=== PATIENT | female | born 1960 | race Caucasian/White ===

== ENCOUNTER 2017-04-24 14:46 | Inpatient (IN) | payer OTHER, MEDICARE ==
[~2017-04-24] VITALS: Ht 177.8 cm; Wt 90.7 kg
[~2017-04-24 14:46] MED LIST: BUPR-197 PO; DICL25 PO; DIGO0.12 PO; ESZO2 PO; GEMF600 PO; LINA290C PO; MOME17I; OXYB5TAB33 PO; PANT20 PO; PARO40TA PO; ROBA750T3 PO; SOTA80TA PO; WARF5TAB PO; WARF7.5T4 PO; [UNRECOGNIZED DRUG - CODE] PO
[2017-04-24 15:16] VITALS: BP 177/89; PULSE 101; RESP 18; TEMP 97.8; O2SAT 97
[2017-04-24] MEDS ORDERED: SODIUM CHLOR 0.9% 1000 ML INJ 1,000 ML IV SCH (15:39)
[2017-04-24] MEDS ORDERED: SODIUM CHLORIDE 0.9% FLUSH 5 ML FLUSH IV FLUSH PRN (15:45)
[2017-04-24 15:48] VITALS: TEMP 98.3
--- NOTE | 2017-04-24 16:25 | RADRPT ---
EXAM DATE/TIME: 04/24/2017 16:00 [facility] COMPARISON: CHEST SINGLE AP, November 01, 2013, 18:43. INDICATIONS : Syncopal episode. MEDICAL HISTORY : None. SURGICAL HISTORY : None. ENCOUNTER: Initial ACUITY: 1 day PAIN SCORE: Non-responsive. LOCATION: Bilateral chest FINDINGS: Single view chest demonstrates the heart to be normal in size. The mediastinal contours are prominent suggesting possible mediastinal adenopathy or aneurysmal dilation of the ascending aorta. CT scan of the thorax with contrast is warranted for further assessment. The lungs are clear. The visualized bony structures are grossly intact. CONCLUSION: 1. Mediastinal prominence which is new compared to previous of 11/01/13. CT imaging of the thorax to excluded adenopathy versus aneurysmal dilation of the ascending aorta is warranted. Gonzales Charles MD on April 24, 2017 at 16:22 Board Certified Radiologist. This report was verified electronically.
--- NOTE | 2017-04-24 16:29 | PD ---
HPI Chief Complaint: General Weakness Time Seen by Provider: 15:38 Travel History International Travel<30 days: No Contact w/Intl Traveler<30days: No Traveled to known affect area: No History of Present Illness HPI This is a 56-year-old female with history of atrial fibrillation, chronic pain, anemia, osteoarthritis, who presents today via EMS for altered mental status. The patient apparently reportedly felt weak and someone called 911. When paramedics arrived, they found her lethargic and weak. She was complaining of general malaise. The patient does appear to be lethargic however is able to questions appropriately. She denies any fevers, chills. She denies any nausea vomiting diarrhea. She denies any shortness of breath. She denies any chest pain, chest pressure. Looking through the patient's medication history, she's been on multiple pain medications. This was also confirmed by EMS. PFSH Past Medical History Anemia: Yes Arthritis: Yes Atrial Fibrillation: Yes Blood Disorders: Yes Anxiety: No Depression: Yes Heart Rhythm Problems: Yes (HX A FIB) Cancer: No Cardiac Catheterization: Yes Cardiovascular Problems: Yes (HEART CATH 2002 ) High Cholesterol: Yes Chemotherapy: No Chest Pain: No Congestive Heart Failure: No Cerebrovascular Accident: No Coronary Artery Disease: Yes (A FIB) Diabetes: No Diminished Hearing: No Endocrine: No Gastrointestinal Disorders: Yes GERD: Yes Genitourinary: Yes (BLADDER PROBLEMS) Hiatal Hernia: No Hypertension: Yes Implanted Vascular Access Dvce: No Musculoskeletal: Yes Neurologic: No Psychiatric: Yes Reproductive: No Respiratory: Yes (HX BRONCHITIS) Migraines: No Radiation Therapy: No Seizures: No Ulcer: No Influenza Vaccination: No Menopausal: Yes Tubal Ligation: Yes Past Surgical History Abdominal Surgery: Yes (GALLBLADDER REMOVED) Cholecystectomy: Yes Coronary Artery Bypass Graft: No Genitourinary Surgery: Yes (HYSTERECTOMY) Hysterectomy: Yes Neurologic Surgery: Yes (CARPAL TUNNEL IN R HAND) Oral Surgery: Yes (TONSILECTOMY ) Pacemaker: No Tonsillectomy: Yes Other Surgery: Yes (VEIN STRIPPING RIGHT LEG, arthroscopy left knee) Family History Family Hypercholesterolemia: Yes Social History Alcohol Use: No Tobacco Use: No Substance Use: No Allergies-Medications (Allergen,Severity, Reaction): Coded Allergies: Bee Sting (Verified Allergy, Severe, RESPIRATORY DISTRESS AND SWELLING, ) Erythromycin (Verified Allergy, Severe, Skin ERUPTIONS, 05/17/14) Penicillin (Verified Allergy, Severe, UNKNOWN, 05/17/14) Tetracycline (Verified Allergy, Severe, SKIN ERRUPTIONS, 05/17/14) *MDRO Multi-Drug Resistant Organism (Verified Allergy, Unknown, 05/17/14) MRSA C-diff 12/2013 Reported Meds & Prescriptions Reported Meds & Active Scripts Active Reported Robaxin (Methocarbamol) 750 Mg Tab 750 Mg PO TID Sotalol (Sotalol HCl) 80 Mg Tab 40 Mg PO BID Digoxin 0.125 Mg Tab 125 Mcg PO DAILY Pantoprazole (Pantoprazole Sodium) 40 Mg Tab 40 Mg PO DAILY Relistor (Methylnaltrexone [place]) 150 Mg Tab 450 Mg PO DAILY Gemfibrozil 600 Mg Tab 600 Mg PO BID Take 30 minutes prior to breakfast and dinner. Ditropan (Oxybutynin Chloride) 5 Mg Tab 5 Mg PO Q8HR Paxil (Paroxetine HCl) 40 Mg Tablet 40 Mg PO DAILY Warfarin 5 Mg Tab 5 Mg PO DAILY Bupropion HCl ER 12 HR (Bupropion HCl) 100 Mg Tab 100 Mg PO DAILY Morphine ER (Morphine Sulfate) 100 Mg Tab 125 Mg PO DAILY Lyrica (Pregabalin) 150 Mg Cap 150 Mg PO BID Voltaren (Diclofenac Sodium) 25 Mg Tab 75 Mg PO BID Review of Systems Except as stated in HPI: all other systems reviewed are Neg General / Constitutional: No: Fever, Chills HENT: No: Neck Pain Cardiovascular: No: Chest Pain or Discomfort, Palpitations Respiratory: No: Shortness of Breath Gastrointestinal: No: Nausea, Vomiting Musculoskeletal: Positive: Weakness (and realized), Pain (diffuse joint pain.) Neurologic: Positive: Weakness (generalized), No: Headache, Incontinence, Sensory Disturbance Physical Exam Narrative GENERAL: Well-developed well-nourished female in no acute respiratory distress. Patient does appear sleepy and somewhat lethargic however is able to answer questions. SKIN: Focused skin assessment warm/dry. HEAD: Atraumatic. Normocephalic. EYES: No pinpoint pupils. No scleral icterus. No injection or drainage. ENT: No nasal bleeding or discharge. Mucous membranes are pink and dry. NECK: Trachea midline. Supple. CARDIOVASCULAR: Regular rate and rhythm. No murmur appreciated. RESPIRATORY: No accessory muscle use. Clear to auscultation. Breath sounds equal bilaterally. Decreased respiratory effort. GASTROINTESTINAL: Abdomen soft, non-tender, nondistended. MUSCULOSKELETAL: No obvious deformities. No skin tenting. There is a bruise over the left dorsum of her foot. NEUROLOGICAL: Awake and lethargic. No obvious cranial nerve deficits. Motor grossly within normal limits. Data Data Last Documented VS Vital Signs Date Time Temp Pulse Resp B/P Pulse Ox O2 Delivery O2 Flow Rate FiO2 04/24/17 15:48 98.3 04/24/17 15:16 101 18 177/89 97 Orders Electrocardiogram (04/24/17 ) Basic Metabolic Panel (Bmp) (04/24/17 15:39) Complete Blood Count With Diff (04/24/17 15:39) Comprehensive Metabolic Panel (04/24/17 15:39) Prothrombin Time / Inr (Pt) (04/24/17 15:39) Act Partial Throm Time (Ptt) (04/24/17 15:39) Troponin I (04/24/17 15:39) Thyroid Stimulating Hormone (04/24/17 15:39) Urinalysis - C+S If Indicated (04/24/17 15:39) Chest, Single Ap (04/24/17 15:39) Ct Brain W/O Iv Contrast(Rout) (04/24/17 15:39) Blood Glucose (04/24/17 15:39) Ecg Monitoring (04/24/17 15:39) Iv Access Insert/Monitor (04/24/17 15:39) Oximetry (04/24/17 15:39) Sodium Chloride 0.9% Flush (Ns Flush) (04/24/17 15:45) Sodium Chlor 0.9% 1000 Ml Inj (Ns 1000 M (04/24/17 15:39) Sodium Chlor 0.9% 1000 Ml Inj (Ns 1000 M (04/24/17 17:30) Ct Pulmonary Angiogram (04/24/17 ) Admit To Inpatient (04/24/17 ) Vital Signs (Adult) Q4H (04/24/17 17:40) Activity Oob With Assistance (04/24/17 17:40) Elementary Assistant Teacher / Telemetry .CONTINUOUS (04/24/17 17:40) Diet Regular Basic (04/24/17 Dinner) Sodium Chlor 0.9% 1000 Ml Inj (Ns 1000 M (04/24/17 17:40) Sodium Chloride 0.9% Flush (Ns Flush) (04/24/17 17:45) Sodium Chloride 0.9% Flush (Ns Flush) (04/24/17 21:00) Ondansetron Inj (Zofran Inj) (04/24/17 17:45) Comprehensive Metabolic Panel (04/25/17 06:00) Complete Blood Count With Diff (04/25/17 06:00) Creatine Kinase (Cpk) (04/24/17 17:40) Creatine Kinase (Cpk) (04/24/17 23:40) Troponin I (04/24/17 17:40) Troponin I (04/24/17 23:40) Electrocardiogram (04/24/17 23:45) Pt Request For Service (04/24/17 17:40) Case Management Consult (04/24/17 17:40) Scd Bilateral/Knee High HARI.BID (04/24/17 17:40) Naloxone Inj (Narcan Inj) (04/24/17 17:45) Docusate Sodium-Senna (Gayle-Colace) (04/24/17 21:00) Magnesium Hydroxide Liq (Milk Of Magnesi (04/24/17 17:45) Sennosides (Senokot) (04/24/17 17:45) Bisacodyl Supp (Dulcolax Supp) (04/24/17 17:45) Lactulose Liq (Lactulose Liq) (04/24/17 17:45) Inpatient Certification (04/24/17 ) Total T3 (04/24/17 17:43) Free Thyroxine (T4) (04/24/17 17:43) Drug Screen, Random Urine (04/24/17 17:44) Cortisol (04/24/17 17:44) Magnesium (Mg) (04/24/17 17:45) Protein Electrophoresis Serum (04/24/17 17:55) Pathologist Smear Review (04/24/17 17:55) Iohexol 350 Inj (Omnipaque 350 Inj) (04/24/17 18:08) Digoxin (04/24/17 18:08) Admit Order (Ed Use Only) (04/24/17 18:40) Labs Laboratory Tests Test 04/24/17 04/24/17 16:01 18:33 White Blood Count 22.0 TH/MM3 Red Blood Count 6.78 MIL/MM3 Hemoglobin 16.8 GM/DL Hematocrit 51.4 % Mean Corpuscular Volume 75.8 FL Mean Corpuscular Hemoglobin 24.8 PG Mean Corpuscular Hemoglobin 32.7 % Concent Red Cell Distribution Width 17.1 % Platelet Count 458 TH/MM3 Mean Platelet Volume 9.5 FL Neutrophils (%) (Auto) 85.0 % Lymphocytes (%) (Auto) 9.5 % Monocytes (%) (Auto) 5.3 % Eosinophils (%) (Auto) 0.1 % Basophils (%) (Auto) 0.1 % Neutrophils # (Auto) 18.7 TH/MM3 Lymphocytes # (Auto) 2.1 TH/MM3 Monocytes # (Auto) 1.2 TH/MM3 Eosinophils # (Auto) 0.0 TH/MM3 Basophils # (Auto) 0.0 TH/MM3 CBC Comment DIFF FINAL Differential Comment Blood Smear Pathologist Review Prothrombin Time 22.0 SEC Prothromb Time International 1.9 RATIO Ratio Activated Partial 39.3 SEC Thromboplast Time Sodium Level 138 MEQ/L Potassium Level 3.3 MEQ/L Chloride Level 101 MEQ/L Carbon Dioxide Level 24.7 MEQ/L Anion Gap 12 MEQ/L Blood Urea Nitrogen 41 MG/DL Creatinine 0.93 MG/DL Estimat Glomerular Filtration 62 ML/MIN Rate Random Glucose 123 MG/DL Calcium Level 11.8 MG/DL Protein Corrected Calcium 10.0 MG/DL Magnesium Level 2.5 MG/DL Total Bilirubin 0.9 MG/DL Aspartate Amino Transf 19 U/L (AST/SGOT) Alanine Aminotransferase 22 U/L (ALT/SGPT) Alkaline Phosphatase 123 U/L Troponin I 0.32 NG/ML 0.30 NG/ML Total Protein 10.0 GM/DL Albumin 4.2 GM/DL Total Triiodothyronine 76 NG/DL Thyroid Stimulating Hormone 0.256 uIU/ML 3rd Gen Digoxin Level 0.4 NG/ML Urine Color YELLOW Urine Turbidity CLEAR Urine pH 6.0 Urine Specific [place] 1.026 Urine Protein 30 mg/dL Urine Glucose (UA) NEG mg/dL Urine Ketones 80 mg/dL Urine Occult Blood NEG Urine Nitrite NEG Urine Bilirubin NEG Urine Urobilinogen 2.0 MG/DL Urine Leukocyte Esterase SMALL Urine RBC 4 /hpf Urine WBC 17 /hpf Urine Squamous Epithelial <1 /hpf Cells Urine Bacteria MOD /hpf Urine Mucus FEW /lpf Microscopic Urinalysis Comment CULTURE INDICATED Total Creatine Kinase 75 U/L Random Cortisol 51.2 MCG/DL Urine Opiates Screen POS Urine Barbiturates Screen NEG Urine Amphetamines Screen NEG Urine Benzodiazepines Screen NEG Urine Cocaine Screen NEG Urine Cannabinoids Screen NEG MDM Medical Decision Making Medical Screen Exam Complete: Yes Emergency Medical Condition: Yes Interpretation(s) Last [address] 04/24/17 1539 Signed Impressions: Service Date/Time: Monday, April 24, 2017 16:29 - CONCLUSION: 1. No acute intracranial abnormality. 2. Sphenoid sinusitis, chronic. Shahriar Isaac MD Chest X-Ray 04/24/17 1539 Signed Impressions: Service Date/Time: Monday, April 24, 2017 16:00 - CONCLUSION: 1. Mediastinal prominence which is new compared to previous of 11/01/13. CT imaging of the thorax to excluded adenopathy versus aneurysmal dilation of the ascending aorta is warranted. Gonzales Charles MD Lower Extremity Ultrasound 04/24/17 0000 Signed Impressions: Service Date/Time: Monday, April 24, 2017 20:59 - CONCLUSION: No DVT is identified within the lower extremities. Krishan Tineo MD CT Angiography 04/24/17 0000 Signed Impressions: Service Date/Time: Monday, April 24, 2017 18:05 - CONCLUSION: 1. Examination quality degraded secondary to patient motion. No PE is identified. 2. Subtle airspace opacity in the right middle lobe and right lower lobe. The appearance favors an infectious or inflammatory process. Krishan Tineo MD Abdomen/Pelvis CT 04/24/17 0000 Signed Impressions: Service Date/Time: April 01:56 - CONCLUSION: Apparent stercoral colitis/proctitis; large amount of stool in the rectum with associated inflammatory changes. No abscess or perforation demonstrated. Krishan Chino MD 12-lead EKG revealed a ventricular rate of 90. There was evidence of ST depression noted in leads V3 through V6. There also appeared to be depression noted in II, III, and F aVF. No acute ST elevation noted. Differential Diagnosis Metabolic derangement versus cardiac ischemia versus overmedication Narrative Course This is a 56-year-old female with history chronic pain, who presents here with lethargy and confusion and weakness. The patient's noted to be severely dehydrated with a BUN of 40 and cramping less than 1. Patient also noted to have elevated cardiac enzymes. She also had leukocytosis. She'll be admitted to the hospital. Case discussed with Dr. Stephens. Patient has received 2 L of IVD fluid thus far. Diagnosis Primary Impression: Altered mental status Additional Impressions: Anemia Severe dehydration Weakness Admitting Information Admitting Physician Requests: Admit Ian Menard MD Apr 24, 2017 16:29
[2017-04-24 16:30] LABS: AUTOMATED NEUTROPHIL # 18.7 TH/MM3 (1.8-7.7); BASOPHIL % 0.1 % (0.0-2.0); EOSINOPHIL % 0.1 % (0.0-4.0); HEMATOCRIT 51.4 % (35.0-46.0); HEMO FLAGS DIFF FINAL; LYMPH % 9.5 % (9.0-44.0); LYMPHOCYTE # 2.1 TH/MM3 (1.0-4.8); MEAN CELL VOLUME 75.8 FL (80.0-100.0); MEAN CORPUSCULAR HEMOGLOBIN 24.8 PG (27.0-34.0); MEAN CORPUSCULAR HGB CONC 32.7 % (32.0-36.0); MONO % 5.3 % (0.0-8.0); PLATELET COUNT 458 TH/MM3 (150-450); RED BLOOD COUNT 6.78 MIL/MM3 (4.00-5.30); RED CELL DISTRIBUTION WIDTH 17.1 % (11.6-17.2)
[2017-04-24 16:37] LABS: APTT (PATIENT) 39.3 SEC (24.3-30.1); INTERNATIONAL NORMALIZED RATIO 1.9 RATIO
--- NOTE | 2017-04-24 16:54 | RADRPT ---
EXAM DATE/TIME: 04/24/2017 16:29 [facility] COMPARISON: CT BRAIN W/O CONTRAST, December 09, 2010, 16:49. INDICATIONS : Evaluate for altered mental status with weakness and fatigue. RADIATION DOSE: 56.35 CTDIvol (mGy) MEDICAL HISTORY : Prone to blood clots. SURGICAL HISTORY : Hysterectomy. Tonsillectomy.Cardiac cath ENCOUNTER: Initial ACUITY: 1 day PAIN SCALE: 3/10 LOCATION: Bilateral cranial TECHNIQUE: Multiple contiguous axial images were obtained of the head. Using automated exposure control and adj ustment of the mA and/or kV according to patient size, radiation dose was kept as low as reasonably a chievable to obtain optimal diagnostic quality images. FINDINGS: CEREBRUM: The ventricles are normal for age. No evidence of midline shift, mass lesion, hemorrhage or acute in farction. No extra-axial fluid collections are seen. POSTERIOR FOSSA: The cerebellum and brainstem are intact. The 4th ventricle is midline. The cerebellopontine angle i s unremarkable. EXTRACRANIAL: The visualized portion of the orbits is intact. SKULL: The calvaria is intact. No evidence of skull fracture. Opacification of the sphenoid sinuses. CONCLUSION: 1. No acute intracranial abnormality. 2. Sphenoid sinusitis, chronic. Shahriar Isaac MD on April 24, 2017 at 16:49 Board Certified Radiologist. This report was verified electronically.
[2017-04-24 16:56] LABS: BICARBONATE 24.7 MEQ/L (21.0-32.0); POTASSIUM 3.3 MEQ/L (3.5-5.1); TOTAL BILIRUBIN ADULT 0.9 MG/DL (0.2-1.0)
[2017-04-24] MEDS ORDERED: PAXI40TA8 PO (16:57)
[2017-04-24] MEDS ORDERED: OXYB5TAB10 PO (16:57)
[2017-04-24] MEDS ORDERED: WARF-23 PO (16:57)
[2017-04-24] MEDS ORDERED: GEMF600 PO (16:57)
[2017-04-24] MEDS ORDERED: ROBA750T PO (16:57)
[2017-04-24] MEDS ORDERED: METH-759 PO (16:57)
[2017-04-24] MEDS ORDERED: BUPR100T PO (16:57)
[2017-04-24] MEDS ORDERED: GEMF600T PO (16:57)
[2017-04-24] MEDS ORDERED: PANT40TA3 PO (16:57)
[2017-04-24] MEDS ORDERED: DIGO0.12 PO (16:57)
[2017-04-24] MEDS ORDERED: LYRI150C PO (16:57)
[2017-04-24] MEDS ORDERED: SOTA80TA PO (16:57)
[2017-04-24] MEDS ORDERED: MORP1TAB27 PO (16:57)
[2017-04-24] MEDS ORDERED: SODIUM CHLOR 0.9% 1000 ML INJ 1,000 ML IV ONE (17:30)
[2017-04-24] MEDS: SODIUM CHLOR 0.9% 1000 ML INJ 1,000 ML IV SCH (17:40)
[2017-04-24] MEDS ORDERED: MAGNESIUM HYDROXIDE SUSP 30 ML CUP PO PRN (17:45)
[2017-04-24] MEDS ORDERED: SODIUM CHLORIDE 0.9% FLUSH 10 ML FLUSH IV FLUSH PRN (17:45)
[2017-04-24] MEDS ORDERED: ONDANSETRON HCL 4 MG/2 ML VIAL IVP PRN (17:45)
[2017-04-24] MEDS ORDERED: BISACODYL 10 MG SUPP RECTAL PRN (17:45)
[2017-04-24] MEDS ORDERED: NALOXONE HCL 0.4 MG/ML AMP IV PRN (17:45)
[2017-04-24] MEDS ORDERED: SENNOSIDES 8.6 MG TAB PO PRN (17:45)
[2017-04-24] MEDS ORDERED: LACTULOSE SYRUP 20 GM/30 ML CUP PO PRN (17:45)
[2017-04-24] MEDS ORDERED: IOHEXOL 350 MG/ML 100 ML BTL (for RAD DIAG) IV ONE (18:08)
--- NOTE | 2017-04-24 18:43 | RADRPT ---
EXAM DATE/TIME: 04/24/2017 18:05 [facility] COMPARISON: CHEST SINGLE AP, April 24, 2017, 16:00. INDICATIONS : Syncopal episode yesterday, mediastinal widening. IV CONTRAST: 50 cc Omnipaque 350 (iohexol) IV RADIATION DOSE: 23.19 CTDIvol (mGy) MEDICAL HISTORY : Cardiovascular disease. Atrial fibrillation. SURGICAL HISTORY : Coronary artery stent. Cholecystectomy.Hysterectomy. ENCOUNTER: Initial ACUITY: 1 day PAIN SCALE: 2/10 LOCATION: Bilateral chest TECHNIQUE: Volumetric scanning of the chest was performed using a pulmonary embolism protocol MIP images were re constructed. Using automated exposure control and adjustment of the mA and/or kV according to patien t size, radiation dose was kept as low as reasonably achievable to obtain optimal diagnostic quality images. FINDINGS: Patient has altered mental status and did not follow breathing instructions and moved arm while scann ing. PULMONARY ARTERIES: No filling defects are seen in the pulmonary arteries through the segmental level. LUNGS: No pneumothorax or concerning pulmonary nodule. Subtle parenchymal opacity is present in the right mi ddle lobe consisting of slight nodularity. Similar appearance is also present in the right lower lobe having a tree in bud opacity. PLEURAE: There is no pleural thickening or pleural effusion. MEDIASTINUM: There is coronary artery calcification and atherosclerotic disease of the aorta. No lymphadenopathy i s identified. MUSCULOSKELETAL: There are degenerative changes of the thoracic spine. MISCELLANEOUS: The visualized upper abdominal organs demonstrate no acute abnormality. Cholecystectomy clips are pre sent. Spleen has a lobulated appearance. CONCLUSION: 1. Examination quality degraded secondary to patient motion. No PE is identified. 2. Subtle airspace opacity in the right middle lobe and right lower lobe. The appearance favors an in fectious or inflammatory process. Krishan Tineo MD on April 24, 2017 at 18:36 Board Certified Radiologist. This report was verified electronically.
[2017-04-24 18:46] VITALS: BP 150/86; PULSE 84; RESP 20; O2SAT 97
[2017-04-24 18:54] LABS: BACTERIA, URINE MOD /hpf; BLOOD, URINE NEG (NEG); COMMENT (UR) CULTURE INDICATED; CULTURE IF INDICATED CULTURE INDICATED; GLUCOSE,URINE NEG (NEG); KETONE, URINE 80 mg/dL (NEG); MUCUS URINE FEW /lpf (OCC); NITRITE,URINE NEG (NEG); SQUAMOUS EPITHELIAL CELL URINE <1 /hpf (0-5); URINE COLOR YELLOW (YELLW/STRAW)
[2017-04-24 18:55] LABS: AMPHETAMINE, URINE NEG (NEG); BARBITURATES, URINE NEG (NEG); COCAINE, URINE NEG (NEG)
--- NOTE | 2017-04-24 20:25 | HHI.HP ---
HPI Service [facility] Primary Care Physician Uziel Quinn MD Admission Diagnosis sever dehydratrion, elevated troponin, elevated calcium Diagnoses: Chief Complaint: generalized weakness Travel History International Travel<30 Days: No Contact w/Intl Traveler <30 Da: No Traveled to Known Affected Are: No Sepsis Criteria SIRS Criteria (2 or more): Heart rate over 90, WBC > 16977, < 4000 or > 10% bands Sepsis Criteria (SIRS+source): Infect source susp/known History of Present Illness Written by Carlotta Tierney, acting as scribe for Dr. Montejo on 04/24/17 at 2314. This is a 56 year old female patient with a past medical history which includes antiphospholipid syndrome, atrial fibrillation, chronic bilateral knee pain, peripheral neuropathy, anxiety/depression, hypertension, hyperlipidemia and coronary artery disease. Patient appears weak and is a poor historian at this time information gathered from patient as well as prior charting. Patient reports that her called the ambulance because she was not taking her medication. It appears that patient has had generalized weakness and poor by mouth intake. Patient offers no specific complaints. Patient denies N/V/D fevers, chills, black stool red stool, blood in urine, syncope, fall, dizziness, shortness of breath or chest pain. Patient reports that she usually walks with a walker and is able to perform ADLs and is still able to drive. Patient is on Morphine ER 125 mg daily for her chronic back pain. Patient denies taking extra medications. Patient labs reveal WBC 22, Neutrophil percent 85, appear hemoconcentrated, BUN 41, creatine 0.93 estimated GFR 62, potassium 3.3, magnesium 2.5, alk phosphatase 123 troponin 0.32, 0.30 TSH 0.256 Review of Systems ROS Limitations: Clinical Condition, Poor Historian Except as stated in HPI: all other systems reviewed are Neg Past Family Social History Past Medical History 1. Antiphospholipid syndrome 2. Atrial fibrillation, but states she has been in sinus rhythm since the first episode. 3. Chronic bilateral knee pain 4. Peripheral neuropathy 5. Anxiety/depression 6. Hypertension 7. Hyperlipidemia 8. Known coronary artery disease. Past Surgical History 1. Cholecystectomy 2. Heart catheterization 3. Hysterectomy 4. Carpal tunnel right wrist 5. Tonsillectomy 6. Arthroscopy left knee 7. Venous stripping of the right leg Reported Medications Robaxin (Methocarbamol) 750 Mg Tab 750 Mg PO TID Sotalol (Sotalol HCl) 80 Mg Tab 40 Mg PO BID Digoxin 0.125 Mg Tab 125 Mcg PO DAILY Pantoprazole (Pantoprazole Sodium) 40 Mg Tab 40 Mg PO DAILY Relistor (Methylnaltrexone [place]) 150 Mg Tab 450 Mg PO DAILY Gemfibrozil 600 Mg Tab 600 Mg PO BID Take 30 minutes prior to breakfast and dinner. Ditropan (Oxybutynin Chloride) 5 Mg Tab 5 Mg PO Q8HR Paxil (Paroxetine HCl) 40 Mg Tablet 40 Mg PO DAILY Warfarin 5 Mg Tab 5 Mg PO DAILY Bupropion HCl ER 12 HR (Bupropion HCl) 100 Mg Tab 100 Mg PO DAILY Morphine ER (Morphine Sulfate) 100 Mg Tab 125 Mg PO DAILY Lyrica (Pregabalin) 150 Mg Cap 150 Mg PO BID Voltaren (Diclofenac Sodium) 25 Mg Tab 75 Mg PO BID Allergies: Coded Allergies: Bee Sting (Verified Allergy, Severe, RESPIRATORY DISTRESS AND SWELLING, ) Erythromycin (Verified Allergy, Severe, Skin ERUPTIONS, 05/17/14) Penicillin (Verified Allergy, Severe, UNKNOWN, 05/17/14) Tetracycline (Verified Allergy, Severe, SKIN ERRUPTIONS, 05/17/14) *MDRO Multi-Drug Resistant Organism (Verified Allergy, Unknown, 05/17/14) MRSA C-diff 12/2013 Active Ordered Medications Current Medications Medications (Trade) Dose Ordered Sig/Agustin Route Start Time Stop Time Status Last Admin (NS 1000 ml Inj) 1,000 ml @ 100 mls/hr Q10H IV 04/24/17 17:40 (NS Flush) 2 ml UNSCH PRN IV FLUSH 04/24/17 17:45 (NS Flush) 2 ml BID IV FLUSH 04/24/17 21:00 (Zofran Inj) 4 mg Q6H PRN IVP 04/24/17 17:45 (Narcan Inj) 0.4 mg UNSCH PRN IV 04/24/17 17:45 (Gayle-Colace) 1 tab BID PO 04/24/17 21:00 (Milk Of Dano Lidora) 30 ml Q12H PRN PO 04/24/17 17:45 (Senokot) 17.2 mg Q12H PRN PO 04/24/17 17:45 (Dulcolax Supp) 10 mg DAILY PRN RECTAL 04/24/17 17:45 Lactulose 30 ml 30 ml DAILY PRN PO 04/24/17 17:45 (Levaquin 750 Mg Premix Inj) 150 ml @ 100 mls/hr Q24H IV 04/24/17 20:00 Family History Mother at age 75 of a myocardial infarction, but had onset in her 40's. She has a sister that had CHF in her 60's. Social History Reports social ETOH use. The patient quit smoking 10-15 years ago. Smoked between one to three packs a day for 20 years. Denies illicit drugs. She is lives with . Physical Exam Vital Signs Vital Signs Date Time Temp Pulse Resp B/P Pulse Ox O2 Delivery O2 Flow Rate FiO2 04/24/17 18:46 84 20 150/86 97 Room Air 04/24/17 15:48 98.3 04/24/17 15:16 97.8 101 18 177/89 97 Physical Exam GENERAL: This is an obese, well-developed patient, appears lethargic slow verbal response SKIN: No rashes, ecchymoses or lesions. Cool and clammy HEAD: Atraumatic. Normocephalic. No temporal or scalp tenderness. EYES: Extraocular motions intact. No scleral icterus. No injection or drainage. CARDIOVASCULAR: Regular rate and rhythm without murmurs, gallops, or rubs. RESPIRATORY: Clear to auscultation. Breath sounds equal bilaterally. No wheezes , rales, or rhonchi. GASTROINTESTINAL: Abdomen soft, tender with palpation worse LLQ, nondistended. No hepato-splenomegaly, or palpable masses. No guarding. MUSCULOSKELETAL: RLE edema >L NEUROLOGICAL: lethargic. Motor and sensory grossly within normal limits. 3-4 out of 5 muscle strength in all muscle groups. slow speech. Laboratory Laboratory Tests Test 04/24/17 04/24/17 16:01 18:33 White Blood Count 22.0 Red Blood Count 6.78 Hemoglobin 16.8 Hematocrit 51.4 Mean Corpuscular Volume 75.8 Mean Corpuscular Hemoglobin 24.8 Mean Corpuscular Hemoglobin 32.7 Concent Red Cell Distribution Width 17.1 Platelet Count 458 Mean Platelet Volume 9.5 Neutrophils (%) (Auto) 85.0 Lymphocytes (%) (Auto) 9.5 Monocytes (%) (Auto) 5.3 Eosinophils (%) (Auto) 0.1 Basophils (%) (Auto) 0.1 Neutrophils # (Auto) 18.7 Lymphocytes # (Auto) 2.1 Monocytes # (Auto) 1.2 Eosinophils # (Auto) 0.0 Basophils # (Auto) 0.0 CBC Comment DIFF FINAL Differential Comment Blood Smear Pathologist Review Prothrombin Time 22.0 Prothromb Time International 1.9 Ratio Activated Partial 39.3 Thromboplast Time Sodium Level 138 Potassium Level 3.3 Chloride Level 101 Carbon Dioxide Level 24.7 Anion Gap 12 Blood Urea Nitrogen 41 Creatinine 0.93 Estimat Glomerular Filtration 62 Rate Random Glucose 123 Calcium Level 11.8 Protein Corrected Calcium 10.0 Magnesium Level 2.5 Total Bilirubin 0.9 Aspartate Amino Transf 19 (AST/SGOT) Alanine Aminotransferase 22 (ALT/SGPT) Alkaline Phosphatase 123 Troponin I 0.32 0.30 Total Protein 10.0 Albumin 4.2 Thyroid Stimulating Hormone 0.256 3rd Gen Digoxin Level 0.4 Urine Color YELLOW Urine Turbidity CLEAR Urine pH 6.0 Urine Specific [place] 1.026 Urine Protein 30 Urine Glucose (UA) NEG Urine Ketones 80 Urine Occult Blood NEG Urine Nitrite NEG Urine Bilirubin NEG Urine Urobilinogen 2.0 Urine Leukocyte Esterase SMALL Urine RBC 4 Urine WBC 17 Urine Squamous Epithelial <1 Cells Urine Bacteria MOD Urine Mucus FEW Microscopic Urinalysis Comment CULTURE INDICATED Total Creatine Kinase 75 Urine Opiates Screen POS Urine Barbiturates Screen NEG Urine Amphetamines Screen NEG Urine Benzodiazepines Screen NEG Urine Cocaine Screen NEG Urine Cannabinoids Screen NEG Date/Time Procedure Status Source Growth 04/24/17 18:33 Urine Culture Received Urine Catheterized Urine Pending Result Diagram: 04/24/17 1601 04/24/17 1601 Imaging Last Impressions Head CT 04/24/17 1539 Signed Impressions: Service Date/Time: Monday, April 24, 2017 16:29 - CONCLUSION: 1. No acute intracranial abnormality. 2. Sphenoid sinusitis, chronic. Shahriar Isaac MD Chest X-Ray 04/24/17 1539 Signed Impressions: Service Date/Time: Monday, April 24, 2017 16:00 - CONCLUSION: 1. Mediastinal prominence which is new compared to previous of 11/01/13. CT imaging of the thorax to excluded adenopathy versus aneurysmal dilation of the ascending aorta is warranted. Gonzales Charles MD Lower Extremity Ultrasound 04/24/17 0000 Signed Impressions: Service Date/Time: Monday, April 24, 2017 20:59 - CONCLUSION: No DVT is identified within the lower extremities. Krishan Tineo MD CT Angiography 04/24/17 0000 Signed Impressions: Service Date/Time: Monday, April 24, 2017 18:05 - CONCLUSION: 1. Examination quality degraded secondary to patient motion. No PE is identified. 2. Subtle airspace opacity in the right middle lobe and right lower lobe. The appearance favors an infectious or inflammatory process. Krishan Tineo MD Abdomen/Pelvis CT 04/24/17 0000 Signed Impressions: Service Date/Time: April 01:56 - CONCLUSION: Apparent stercoral colitis/proctitis; large amount of stool in the rectum with associated inflammatory changes. No abscess or perforation demonstrated. Krishan Chino MD Last Impressions Head CT 04/24/17 1539 Signed Impressions: Service Date/Time: Monday, April 24, 2017 16:29 - CONCLUSION: 1. No acute intracranial abnormality. 2. Sphenoid sinusitis, chronic. Shahriar Isaac MD Chest X-Ray 04/24/17 1539 Signed Impressions: Service Date/Time: Monday, April 24, 2017 16:00 - CONCLUSION: 1. Mediastinal prominence which is new compared to previous of 11/01/13. CT imaging of the thorax to excluded adenopathy versus aneurysmal dilation of the ascending aorta is warranted. Gonzales Charles MD CT Angiography 04/24/17 0000 Signed Impressions: Service Date/Time: Monday, April 24, 2017 18:05 - CONCLUSION: 1. Examination quality degraded secondary to patient motion. No PE is identified. 2. Subtle airspace opacity in the right middle lobe and right lower lobe. The appearance favors an infectious or inflammatory process. Krishan Tineo MD Septic Shock Reassessment Heart: Regular rate and rhythm Lungs: Diminished Skin: Cold, Moist Peripheral Pulses: Bounding Right Radial Bounding Left Radial Bounding Right Dorsalis Pedis Bounding Left Dorsalis Pedis Capillary Refill: Brisk Assessment and Plan Problem List: (1) Sepsis ICD Code: A41.9 Status: Acute (2) PNA (pneumonia) ICD Code: J18.9 Status: Acute (3) Altered mental status ICD Code: R41.82 Status: Acute Assessment and Plan This is a 56 year old female patient with a past medical history which includes antiphospholipid syndrome, atrial fibrillation, chronic bilateral knee pain, peripheral neuropathy, anxiety/depression, hypertension, hyperlipidemia and coronary artery disease. Patient appears weak and is a poor historian at this time information gathered from patient as well as prior charting. Patient reports that her called the ambulance because she was not taking her medication. It appears that patient has had generalized weakness and poor by mouth intake. Patient labs reveal WBC 22, Neutrophil percent 85, appear hemoconcentrated, BUN 41, creatine 0.93 estimated GFR 62, potassium 3.3, magnesium 2.5, alk phosphatase 123 troponin 0.32, 0.30 TSH 0.256 Sepsis by criteria (HR 101, WBC 22.0, with suspected source pna) generalized weakness Leukocytosis pna possible UTI CXR reviewed and reveals 1. Mediastinal prominence which is new compared to previous of 11/01/13. CT imaging of the thorax to excluded adenopathy versus aneurysmal dilation of the ascending aorta is warranted CT chest with contrast reviewed and reveals 1. Examination quality degraded secondary to patient motion. No PE is identified. 2. Subtle airspace opacity in the right middle lobe and right lower lobe. The appearance favors an infectious or inflammatory process. Levaquin 750mg IV AMS likely secondary to metabolic encephalopathy vs TIA/CVA CT head reviewed and reveals 1. No acute intracranial abnormality. 2. Sphenoid sinusitis, chronic MRI ordered severe dehydration appears hemoconcentrated 1L NS bolus given in ER IV fluids NS at 100ml/H recheck CBC, BMP now Elevated troponin 0.32, 0.030, possible demand ischemia secondary to sepsis R/O ACS continue serial enzymes Initial EKG reveals SR first degree AV block HR 90bpm, ST depression leads II , AVF, V3, V4 and V5 with LVH continue serial EKG continuous telemetry monitoring Atrial fibrillation- chronic currently in SR Continue home medications warfarin, Sotalol, Digoxin DVT prophylaxis patient in Coumadin Discussed with nursing and patient abdominal pain with diarrhea Colitis stool for C diff negative CT abdomen/Pelvis reviewed and reveals 1. Examination quality degraded secondary to patient motion. No PE is identified. 2. Subtle airspace opacity in the right middle lobe and right lower lobe. The appearance favors an infectious or inflammatory process. Patient previously started on Levaquin for pna will add Flagyl IV Physician Certification 2 Midnight Certification Type: Admission for Inpatient Services Order for Inpatient Services The services are ordered in accordance with Medicare regulations or non- Medicare payer requirements, as applicable. In the case of services not specified as inpatient-only, they are appropriately provided as inpatient services in accordance with the 2-midnight benchmark. Estimated LOS (days): 3 days is the estimated time the patient will need to remain in the hospital, assuming treatment plan goals are met and no additional complications. Post-Hospital Plan: Home Carlotta Tierney Apr 24, 2017 20:25
[2017-04-24] MEDS: SODIUM CHLORIDE 0.9% FLUSH 10 ML FLUSH IV FLUSH SCH (20:37)
[2017-04-24] MEDS: LEVOFLOXACIN 750 MG PREMIX INJ 150 ML IV SCH (20:37)
[2017-04-24 20:53] VITALS: BP 153/90; PULSE 94; RESP 18; O2SAT 100
[2017-04-24] MEDS: DOCUSATE SODIUM 50 MG/SENNA 8.6 MG TAB PO SCH (21:00)
--- NOTE | 2017-04-24 21:44 | RADRPT ---
EXAM DATE/TIME: 04/24/2017 20:59 [facility] COMPARISON: No previous studies available for comparison. INDICATIONS : Bilateral leg swelling. MEDICAL HISTORY : Hypercholesterolemia. Hypertension. Arthritis. CAD. Afib. Bronchitis. GERD. UTI. Clotting problems. A nemia. MRSA. Cdiff. SURGICAL HISTORY : Tonsillectomy.Cholecystectomy. Tubal ligation.Ear tubes. Right carpel tunnel release. Cardiac cath. H ysterectomy. Right leg vein stripping. Left knee arthroscopy. Blood transfusions. ENCOUNTER: Initial ACUITY: 1 day PAIN SCORE: Non-responsive LOCATION: Bilateral leg. TECHNIQUE: Venous ultrasound of the left and right leg was performed from the inguinal ligament to the proximal calf. Real-time, color Doppler and spectral tracing, compression and augmentation techniques were us ed. FINDINGS: RIGHT LEG: There is normal compressibility of the deep venous system from the inguinal region to the proximal ca lf. No echogenic clot is seen in the lumen of the common femoral, femoral, popliteal, and posterior tibial veins. There is a normal response of the venous system to proximal and distal augmentation an d respiration. LEFT LEG: There is normal compressibility of the deep venous system from the inguinal region to the proximal ca lf. No echogenic clot is seen in the lumen of the common femoral, femoral, popliteal, and posterior tibial veins. There is a normal response of the venous system to proximal and distal augmentation an d respiration. CONCLUSION: No DVT is identified within the lower extremities. Krishan Tineo MD on April 24, 2017 at 21:42 Board Certified Radiologist. This report was verified electronically.
[2017-04-24] MEDS ORDERED: DIATRIZOATE MEGLUM/DIATRIZOATE SOD 9 ML CUP PO SCH (22:00)
[2017-04-24 22:50] VITALS: PULSE 102
[2017-04-24] MEDS ORDERED: SOTALOL HCL 80 MG TAB PO ONE (23:15)
[2017-04-25] VITALS (10 sets, daily range): BP systolic 131–180; BP diastolic 66–87; PULSE 72–113; RESP 18–20; TEMP 96.7–98.6; O2SAT 95–97
[2017-04-25 00:45] LABS: AUTOMATED NEUTROPHIL # 20.2 TH/MM3 (1.8-7.7); BASOPHIL # 0.1 TH/MM3 (0-0.2); BASOPHIL % 0.3 % (0.0-2.0); EOSINOPHIL % 0.1 % (0.0-4.0); HEMATOCRIT 44.9 % (35.0-46.0); HEMO FLAGS DIFF FINAL; LYMPH % 8.9 % (9.0-44.0); LYMPHOCYTE # 2.2 TH/MM3 (1.0-4.8); MEAN CELL VOLUME 74.6 FL (80.0-100.0); MEAN CORPUSCULAR HEMOGLOBIN 24.8 PG (27.0-34.0); MEAN CORPUSCULAR HGB CONC 33.3 % (32.0-36.0); NEUT % 83.7 % (16.0-70.0); PLATELET COUNT 423 TH/MM3 (150-450); RED BLOOD COUNT 6.02 MIL/MM3 (4.00-5.30); RED CELL DISTRIBUTION WIDTH 16.5 % (11.6-17.2); WHITE BLOOD COUNT 24.1 TH/MM3 (4.0-11.0)
[2017-04-25] MEDS ORDERED: POTASSIUM CHLORIDE 25 MEQ EFFERVESCENT TAB PO ONE (01:00)
[2017-04-25 01:10] LABS: POTASSIUM 3.2 MEQ/L (3.5-5.1)
[2017-04-25 01:28] LABS: FREE T4 1.39 NG/DL (0.76-1.46)
--- NOTE | 2017-04-25 02:14 | RADRPT ---
EXAM DATE/TIME: 04/25/2017 01:56 [facility] COMPARISON: CT PULMONARY ANGIOGRAM, April 24, 2017, 18:05. CT ABDOMEN & PELVIS W CONTRAST, December 16, 2013, 17: 03. INDICATIONS : Abdominal pain. ORAL CONTRAST: Prescribed oral contrast ingested. RADIATION DOSE: 13.27 CTDIvol (mGy) MEDICAL HISTORY : Hypertension. Cardiovascular disease Gastroesophageal reflux disease.A-Fib. SURGICAL HISTORY : Tubal ligation. Hysterectomy.Cholecystectomy. ENCOUNTER: Initial ACUITY: 1 day PAIN SCALE: 4/10 LOCATION: Diffuse abdomen TECHNIQUE: Volumetric scanning of the abdomen and pelvis was performed. Using automated exposure control and ad justment of the mA and/or kV according to patient size, radiation dose was kept as low as reasonably achievable to obtain optimal diagnostic quality images. FINDINGS: Large amount of stool seen in the colon. There is rectal wall thickening and adjacent edema noted. Mo derate stool in the rest of the colon without wall thickening. No free air. Liver within normal limits. Lobulated spleen again noted. Kidneys are within normal limits. The contr ast from the recent CT pulmonary angiogram is being excreted. No hydronephrosis or hydroureter. Pancr eas and adrenal glands are within normal limits. CONCLUSION: Apparent stercoral colitis/proctitis; large amount of stool in the rectum with associated inflammator y changes. No abscess or perforation demonstrated. Krishan Chino MD on April 25, 2017 at 2:09 Board Certified Radiologist. This report was verified electronically.
[2017-04-25] MEDS: SODIUM CHLOR 0.9% 1000 ML INJ 1,000 ML IV SCH ×2 (03:40→22:40)
[2017-04-25 03:53] LABS: C. DIFF EPI 027 PRESUMPTIVE NEGATIVE (NEGATIVE); C. DIFF TOXIN PCR NEGATIVE (NEGATIVE)
[2017-04-25] MEDS ORDERED: KETOROLAC TROMETHAMINE 30 MG/ML (IVP) VIAL IV PUSH ONE (04:30)
[2017-04-25] MEDS ORDERED: ENALAPRILAT 1.25 MG/ML VIAL IV PUSH PRN (04:30)
[2017-04-25] MEDS: metroNIDAZOLE 500 MG INJ 100 ML IV SCH ×3 (04:44→22:36)
[2017-04-25] MEDS: GEMFIBROZIL 600 MG TAB PO SCH ×2 (06:38→16:33)
[2017-04-25] MEDS: OXYBUTYNIN CHLORIDE 5 MG TAB PO SCH ×3 (06:38→22:36)
[2017-04-25] MEDS: RELISTOR PO SCH (09:00)
[2017-04-25] MEDS: PANTOPRAZOLE SOD 40 MG DELAYED RELEASE TAB PO SCH (09:01)
[2017-04-25] MEDS: buPROPion HCL 100 MG SUSTAINED RELEASE TAB PO SCH (09:02)
[2017-04-25] MEDS: DIGOXIN 0.125 MG TAB PO SCH (09:02)
[2017-04-25] MEDS: PARoxetine HCL 20 MG TAB PO SCH (09:02)
[2017-04-25] MEDS: DOCUSATE SODIUM 50 MG/SENNA 8.6 MG TAB PO SCH ×2 (09:02→20:41)
[2017-04-25] MEDS: SOTALOL HCL 80 MG TAB PO SCH ×2 (09:02→20:41)
--- NOTE | 2017-04-25 11:14 | RADRPT ---
EXAM DATE/TIME: 04/25/2017 09:25 [facility] COMPARISON: No previous studies available for comparison. INDICATIONS : Possible cerebrovascular accident. MEDICAL HISTORY : Hypercholesterolemia. Arthritis. Afib. CAD. HTN. GERD. UTI. Anemia. Clotting problems. MRSA. Cdiff. SURGICAL HISTORY : Tonsillectomy. Cholecystectomy. Tubal ligation. Ear tubes. Right carpel tunnel release. Cardiac cath. Hysterectomy. Right leg vein stripping. Left knee arthroscopy. Blood transfusions. ENCOUNTER: Initial ACUITY: 3 days PAIN SCORE: 2/10 LOCATION: Bilateral neck PEAK SYSTOLIC VELOCITIES (cm/sec): ICA/CCA RATIO: Right: 1.0 Left: 0.9 ICA: Right: 65.1 Left: 62.5 CCA: Right: 66.8 Left: 66.0 ECA: Right: 73.3 Left: 71.0 VERTEBRAL: Right: 55.9 antegrade Left: 42.4 antegrade Elevated flow velocities and ICA/CCA ratios have been found to correlate with increased degrees of vessel stenosis, calculated as percentage of diameter relative to a normal segment of distal ICA/CCA FINDINGS: RIGHT CAROTID: No significant stenosis is visualized. The waveforms are within normal limits. LEFT CAROTID: No significant stenosis is visualized. The waveforms are within normal limits. VERTEBRAL ARTERIES: Antegrade flow is seen in both vertebral arteries. MISCELLANEOUS: None. CONCLUSION: 1. Mild calcified carotid plaque bilaterally without significant flow-limiting stenosis. 2. Antegrade vertebral artery flow. Shahriar Isaac MD on April 25, 2017 at 11:10 Board Certified Radiologist. This report was verified electronically.
[2017-04-25 11:36] LABS: AUTOMATED NEUTROPHIL # 21.2 TH/MM3 (1.8-7.7); BASOPHIL # 0.1 TH/MM3 (0-0.2); BASOPHIL % 0.4 % (0.0-2.0); EOSINOPHIL # 0.1 TH/MM3 (0-0.4); EOSINOPHIL % 0.5 % (0.0-4.0); HEMATOCRIT 41.7 % (35.0-46.0); HEMO FLAGS DIFF FINAL; LYMPH % 12.1 % (9.0-44.0); LYMPHOCYTE # 3.2 TH/MM3 (1.0-4.8); MEAN CELL VOLUME 74.9 FL (80.0-100.0); MEAN CORPUSCULAR HEMOGLOBIN 24.9 PG (27.0-34.0); MEAN CORPUSCULAR HGB CONC 33.3 % (32.0-36.0); MONO % 7.6 % (0.0-8.0); NEUT % 79.4 % (16.0-70.0); PLATELET COUNT 383 TH/MM3 (150-450); RED BLOOD COUNT 5.58 MIL/MM3 (4.00-5.30); RED CELL DISTRIBUTION WIDTH 16.3 % (11.6-17.2); WHITE BLOOD COUNT 26.8 TH/MM3 (4.0-11.0)
[2017-04-25 12:21] LABS: ALT (GPT) 19 U/L (10-53); ANION GAP 11 MEQ/L (5-15); AST (GOT) 16 U/L (15-37); BICARBONATE 23.4 MEQ/L (21.0-32.0); BLOOD UREA NITROGEN 44 MG/DL (7-18); CHLORIDE 103 MEQ/L (98-107); GLOMERULAR FILTRATION RATE 55 ML/MIN (>89); POTASSIUM 3.6 MEQ/L (3.5-5.1); SODIUM (NA) 137 MEQ/L (136-145)
[2017-04-25 12:23] LABS: ALKALINE PHOSPHATASE 100 U/L (45-117); TOTAL BILIRUBIN ADULT 0.9 MG/DL (0.2-1.0)
--- NOTE | 2017-04-25 12:23 | PD.CONS ---
HPI History of Present Illness This 56 yo lady with hx AF, HTN, CAD presented to hospital with AMS. Pt reports that a few days ago she stopped taking her medicine and she doesn't know why, and her came to the hospital. Pt is a poor historian and while she is oriented x 3, she still seems confused. Some hx obtained from EMR. She says she is having copious BMS, she claims water stools. She thinks she was having this before she came to the hospital. She says usually she is constipated b/c she takes morphine and "alot of pain meds." She says she takes relistor at home but that it doesn't really work for her. She is not sure if she had n/v prior to being in hospital but says she has some nausea now. She cannot tell me if she has blood in her stool. Denies tarry stools. Unable to obtain further reliable information from her. CT 04-25-17 --> apparent stercora colitis/proctitis, large amount of stool in rectum with associated inflammatory changes. No abscess or perforation demonstrated. [facility] Past Medical History 1. Antiphospholipid syndrome 2. Atrial fibrillation, but states she has been in sinus rhythm since the first episode. 3. Chronic bilateral knee pain 4. Peripheral neuropathy 5. Anxiety/depression 6. Hypertension 7. Hyperlipidemia 8. Known coronary artery disease. Past Surgical History 1. Cholecystectomy 2. Heart catheterization 3. Hysterectomy 4. Carpal tunnel right wrist 5. Tonsillectomy 6. Arthroscopy left knee 7. Venous stripping of the right leg Coded Allergies: Bee Sting (Verified Allergy, Severe, RESPIRATORY DISTRESS AND SWELLING, ) Erythromycin (Verified Allergy, Severe, Skin ERUPTIONS, 05/17/14) Penicillin (Verified Allergy, Severe, UNKNOWN, 05/17/14) Tetracycline (Verified Allergy, Severe, SKIN ERRUPTIONS, 05/17/14) *MDRO Multi-Drug Resistant Organism (Verified Allergy, Unknown, 05/17/14) MRSA C-diff 12/2013 Family History Mother at age 75 of a myocardial infarction, but had onset in her 40's. She has a sister that had CHF in her 60's. Social History Reports social ETOH use. The patient quit smoking 10-15 years ago. Smoked between one to three packs a day for 20 years. Denies illicit drugs. She is lives with . Review of Systems Constitutional: DENIES: Fever Eyes: DENIES: Blurred vision Ears, nose, mouth, throat: DENIES: Hearing loss Respiratory: DENIES: Cough Cardiovascular: DENIES: Chest pain Gastrointestinal: COMPLAINS OF: Abdominal pain, Constipation, Diarrhea, Nausea , DENIES: Black stools, Bloody stools, Vomiting Musculoskeletal: DENIES: Muscle aches Integumentary: DENIES: Rash Psychiatric: COMPLAINS OF: Confusion GI Exam Vitals I&O Vital Signs Date Time Temp Pulse Resp B/P Pulse Ox O2 Delivery O2 Flow Rate FiO2 04/25/17 08:20 97.7 94 18 148/71 95 04/25/17 07:03 92 131/66 04/25/17 04:00 97.5 100 20 180/87 95 04/25/17 00:35 113 04/25/17 00:35 104 04/25/17 00:34 112 04/25/17 00:00 98.6 91 20 156/77 96 04/24/17 22:50 102 04/24/17 20:53 94 18 153/90 100 Room Air 04/24/17 18:46 84 20 150/86 97 Room Air 04/24/17 15:48 98.3 04/24/17 15:16 97.8 101 18 177/89 97 I/O 04/24/17 04/24/17 04/24/17 04/25/17 04/25/17 04/25/17 07:00 15:00 23:00 07:00 15:00 23:00 Intake Total 440 ml Output Total 500 ml Balance -500 ml 440 ml Intake Oral 240 ml IV Total 200 ml Output Urine Total 500 ml # Voids 1 2 # Bowel Movements 1 2 Imaging Last Impressions Carotid Artery Ultrasound 04/25/17 0000 Signed Impressions: Service Date/Time: April 09:25 - CONCLUSION: 1. Mild calcified carotid plaque bilaterally without significant flow-limiting stenosis. 2. Antegrade vertebral artery flow. Shahriar Isaac MD Head CT 04/24/17 1539 Signed Impressions: Service Date/Time: Monday, April 24, 2017 16:29 - CONCLUSION: 1. No acute intracranial abnormality. 2. Sphenoid sinusitis, chronic. Shahriar Isaac MD Chest X-Ray 04/24/17 1539 Signed Impressions: Service Date/Time: Monday, April 24, 2017 16:00 - CONCLUSION: 1. Mediastinal prominence which is new compared to previous of 11/01/13. CT imaging of the thorax to excluded adenopathy versus aneurysmal dilation of the ascending aorta is warranted. Gonzales Charles MD Lower Extremity Ultrasound 04/24/17 0000 Signed Impressions: Service Date/Time: Monday, April 24, 2017 20:59 - CONCLUSION: No DVT is identified within the lower extremities. Krishan Tineo MD CT Angiography 04/24/17 0000 Signed Impressions: Service Date/Time: Monday, April 24, 2017 18:05 - CONCLUSION: 1. Examination quality degraded secondary to patient motion. No PE is identified. 2. Subtle airspace opacity in the right middle lobe and right lower lobe. The appearance favors an infectious or inflammatory process. Krishan Tineo MD Abdomen/Pelvis CT 04/24/17 0000 Signed Impressions: Service Date/Time: April 01:56 - CONCLUSION: Apparent stercoral colitis/proctitis; large amount of stool in the rectum with associated inflammatory changes. No abscess or perforation demonstrated. Krishan Chino MD Laboratory Test 04/24/17 04/24/17 04/24/17 04/25/17 16:01 18:33 21:40 00:27 White Blood Count 22.0 TH/MM3 24.1 TH/MM3 Red Blood Count 6.78 MIL/MM3 6.02 MIL/MM3 Hemoglobin 16.8 GM/DL 14.9 GM/DL Hematocrit 51.4 % 44.9 % Mean Corpuscular Volume 75.8 FL 74.6 FL Mean Corpuscular Hemoglobin 24.8 PG 24.8 PG Mean Corpuscular Hemoglobin 32.7 % 33.3 % Concent Red Cell Distribution Width 17.1 % 16.5 % Platelet Count 458 TH/MM3 423 TH/MM3 Mean Platelet Volume 9.5 FL 9.2 FL Neutrophils (%) (Auto) 85.0 % 83.7 % Lymphocytes (%) (Auto) 9.5 % 8.9 % Monocytes (%) (Auto) 5.3 % 7.0 % Eosinophils (%) (Auto) 0.1 % 0.1 % Basophils (%) (Auto) 0.1 % 0.3 % Neutrophils # (Auto) 18.7 TH/MM3 20.2 TH/MM3 Lymphocytes # (Auto) 2.1 TH/MM3 2.2 TH/MM3 Monocytes # (Auto) 1.2 TH/MM3 1.7 TH/MM3 Eosinophils # (Auto) 0.0 TH/MM3 0.0 TH/MM3 Basophils # (Auto) 0.0 TH/MM3 0.1 TH/MM3 CBC Comment DIFF FINAL DIFF FINAL Differential Comment Blood Smear Pathologist Review Prothrombin Time 22.0 SEC Prothromb Time International 1.9 RATIO Ratio Activated Partial 39.3 SEC Thromboplast Time Sodium Level 138 MEQ/L 136 MEQ/L Potassium Level 3.3 MEQ/L 3.2 MEQ/L Chloride Level 101 MEQ/L 104 MEQ/L Carbon Dioxide Level 24.7 MEQ/L 21.0 MEQ/L Anion Gap 12 MEQ/L 11 MEQ/L Blood Urea Nitrogen 41 MG/DL 37 MG/DL Creatinine 0.93 MG/DL 0.72 MG/DL Estimat Glomerular Filtration 62 ML/MIN 84 ML/MIN Rate Random Glucose 123 MG/DL 113 MG/DL Calcium Level 11.8 MG/DL 11.1 MG/DL Protein Corrected Calcium 10.0 MG/DL Magnesium Level 2.5 MG/DL Total Bilirubin 0.9 MG/DL Aspartate Amino Transf 19 U/L (AST/SGOT) Alanine Aminotransferase 22 U/L (ALT/SGPT) Alkaline Phosphatase 123 U/L Troponin I 0.32 NG/ML 0.30 NG/ML 0.35 NG/ML Total Protein 10.0 GM/DL Albumin 4.2 GM/DL Total Triiodothyronine 76 NG/DL Thyroid Stimulating Hormone 0.256 uIU/ML 3rd Gen Digoxin Level 0.4 NG/ML Urine Color YELLOW Urine Turbidity CLEAR Urine pH 6.0 Urine Specific [place] 1.026 Urine Protein 30 mg/dL Urine Glucose (UA) NEG mg/dL Urine Ketones 80 mg/dL Urine Occult Blood NEG Urine Nitrite NEG Urine Bilirubin NEG Urine Urobilinogen 2.0 MG/DL Urine Leukocyte Esterase SMALL Urine RBC 4 /hpf Urine WBC 17 /hpf Urine Squamous Epithelial <1 /hpf Cells Urine Bacteria MOD /hpf Urine Mucus FEW /lpf Microscopic Urinalysis Comment CULTURE INDICATED Total Creatine Kinase 75 U/L 62 U/L Random Cortisol 51.2 MCG/DL Urine Opiates Screen POS Urine Barbiturates Screen NEG Urine Amphetamines Screen NEG Urine Benzodiazepines Screen NEG Urine Cocaine Screen NEG Urine Cannabinoids Screen NEG Lactic Acid Level 1.3 mmol/L Free Thyroxine 1.39 NG/DL Test 04/25/17 04/25/17 02:00 11:24 Stool C. difficile Toxin (PCR) NEGATIVE Stl C. difficile Toxin PRESUMPTIVE Epiderm 027 NEGATIVE White Blood Count 26.8 TH/MM3 Red Blood Count 5.58 MIL/MM3 Hemoglobin 13.9 GM/DL Hematocrit 41.7 % Mean Corpuscular Volume 74.9 FL Mean Corpuscular Hemoglobin 24.9 PG Mean Corpuscular Hemoglobin 33.3 % Concent Red Cell Distribution Width 16.3 % Platelet Count 383 TH/MM3 Mean Platelet Volume 9.0 FL Neutrophils (%) (Auto) 79.4 % Lymphocytes (%) (Auto) 12.1 % Monocytes (%) (Auto) 7.6 % Eosinophils (%) (Auto) 0.5 % Basophils (%) (Auto) 0.4 % Neutrophils # (Auto) 21.2 TH/MM3 Lymphocytes # (Auto) 3.2 TH/MM3 Monocytes # (Auto) 2.0 TH/MM3 Eosinophils # (Auto) 0.1 TH/MM3 Basophils # (Auto) 0.1 TH/MM3 CBC Comment DIFF FINAL Differential Comment Date/Time Procedure Status Source Growth 04/24/17 18:33 Urine Culture Received Urine Catheterized Urine Pending Physical Examination HEENT:PERRL; normocephalic; atraumatic; no jaundice. CHEST: CTA CARDIAC: RRR ABDOMEN: mild firmness lower abd, nondistended,lower abd TTP; no hepatosplenomegaly; bowel sounds are present in all four quadrants. EXTREMITIES: No clubbing, cyanosis, or edema. SKIN: Normal; no rash; no jaundice. LEATHER SPLITTER: AOX3 but mildly confused Assessment and Plan Plan ASSESSMENT - diarrhea - pt claims onset watery stool prior to admission but unable to get much meaningful info from her. She has chronic constipation likely 2/2 opioid use, takes relistor at home. CT 04-25-17--> Apparent stercoral colitis/proctitis; large amount of stool in the rectum with associated inflammatory changes. No abscess or perforation demonstrated. could be overflow diarrhea, will try enemas. - abdominal pain - lower abdominal TTP, likely 2/[address] as above. - AMS - per primary, metabolic encephalopathy vs TIA/CVA - Sepsis - per primary, poss PNA PLAN - SSE X 2 - KUB tomorrow - clears - further recommendations to follow This pt seen by myself and Dr Deal and this note is written on his behalf Giovana Sofia Apr 25, 2017 12:23 Giovana Sofia Apr 25, 2017 12:23
--- NOTE | 2017-04-25 12:27 | ECHRPT ---
Indication: cva CONCLUSIONS Normal left ventricular size and wall motion. The left ventricular systolic function is normal with an estimated ejection fraction in the range of 55-60%. Trace tricuspid regurgitation.The transthoracic study is normal by two-dimensional, color flow imagi ng and Doppler interrogation. BP: 131 / 66 HR: 92 Rhythm: Sinus MEASUREMENTS (Male / Female) Normal Values Technical Quality:Fair 2D ECHO LV Diastolic Diameter PLAX 2.9 cm 4.2 - 5.9 / 3.9 - 5.3 cm LV Systolic Diameter PLAX 2.2 cm IVS Diastolic Thickness 1.4 cm 0.6 - 1.0 / 0.6 - 0.9 cm LVPW Diastolic Thickness 0.9 cm 0.6 - 1.0 / 0.6 - 0.9 cm LV Relative Wall Thickness 0.8 RV Internal Dim ED PLAX 2.3 cm M-MODE Aortic Root Diameter MM 4.0 cm LA Systolic Diameter MM 3.8 cm LA Ao Ratio MM 0.9 AV Cusp Separation MM 1.9 cm FINDINGS LEFT VENTRICLE Normal left ventricular size. The left ventricular systolic function is normal with an estimated ejection fraction in the range of 55-60%. Ken Santos MD (Electronically Signed) Final Date:25 April 2017 12:26
[2017-04-25] MEDS: PREGABALIN 75 MG CAP PO SCH ×2 (12:33→20:41)
[2017-04-25 13:54] LABS: TOTAL PROTEIN SPE 8.1 GM/DL (6.0-7.6)
--- NOTE | 2017-04-25 14:39 | EKG ---
Date Performed: 04/24/2017 Time Performed: 15:42:07 PTAGE: 56 years EKG: Sinus rhythm WITH FIRST DEGREE AV BLOCK RIGHT ATRIAL ENLARGEMENT POSSIBLE LEFT ATRIAL ENLARGEMENT MODERATE INTRAV ENTRICULAR CONDUCTION DELAY ST DEVIATION AND MODERATE T-WAVE ABNORMALITY, CONSIDER ANTEROLATERAL ISCH EMIA ABNORMAL ECG Compared to PREVIOUS TRACING , the diffuse ST segment depression is new as is the ST segment elevatio n in lead aVR. If the patient has myocardial ischemia, the ekg suggest left main disease or proximal left anterior descending disease. This could be from left ventricular hypertrophy but clinical corre lation will be important. PREVIOUS TRACIN01/08/2014 16.08 DOCTOR: Georgina Shields Interpretating Date/Time 04/25/2017 14:38:26
--- NOTE | 2017-04-25 14:57 | RADRPT ---
EXAM DATE/TIME: 04/25/2017 13:55 [facility] COMPARISON: CT ABDOMEN & PELVIS W/O CONTRAST, April 25, 2017, 1:56. INDICATIONS : Abdomen pain. MEDICAL HISTORY : diarrhea SURGICAL HISTORY : Hysterectomy. Cholecystectomy. ENCOUNTER: Initial ACUITY: 1 day PAIN SCORE: 10/10 LOCATION: Bilateral abdomen FINDINGS: There is moderate constipation. Bladder is distended. No bowel obstruction or free air identified. De generative changes in spine. CONCLUSION: 1. Constipation. Bladder distended with contrast. Multiple surgical clips right upper quadrant. Marty Lundberg MD on April 25, 2017 at 14:52 Board Certified Radiologist. This report was verified electronically.
--- NOTE | 2017-04-25 15:36 | RADRPT ---
EXAM DATE/TIME: 04/25/2017 14:41 [facility] COMPARISON: MRI BRAIN W/O CONTRAST, April 25, 2017, 14:41. INDICATIONS : Altered mental status. CVA. MEDICAL HISTORY : A-fib. SURGICAL HISTORY : Cholecystectomy. Hysterectomy. ENCOUNTER: Subsequent ACUITY: 2 day PAIN SCORE: 0/10 LOCATION: head. Please note a normal MRA of the brain does not entirely exclude the possibility of a small aneurysm, nor the possibility of distal intracranial vessel disease. TECHNIQUE: 3D time of flight MRA was performed. Source images, multiplanar STS MIP, and 3D volume MIP reconstru ctions were reviewed. FINDINGS: There is excellent visualization of the major intracranial arteries out to the second-order branch ve ssels. There is no evidence for aneurysm, vessel truncation or stenosis, and no evidence for vascula r malformation. CONCLUSION: 1. Negative examination. Gonzales Charles MD on April 25, 2017 at 15:32 Board Certified Radiologist. This report was verified electronically.
--- NOTE | 2017-04-25 15:39 | RADRPT ---
EXAM DATE/TIME: 04/25/2017 14:41 [facility] COMPARISON: No previous studies available for comparison. INDICATIONS : Altered mental status. CVA. MEDICAL HISTORY : A-fib. SURGICAL HISTORY : Cholecystectomy. Hysterectomy. ENCOUNTER: Subsequent ACUITY: 2 day PAIN SCORE: 0/10 LOCATION: head. TECHNIQUE: Multiplanar, multisequence MRI of the brain was performed without contrast. FINDINGS: CEREBRUM: The ventricles are normal for age. No evidence of midline shift, mass lesion, hemorrhage or acute in farction. No extraaxial fluid collections are seen. The pituitary gland and suprasellar cistern are normal in configuration. WHITE MATTER: No significant signal abnormalities are seen in the white matter. POSTERIOR FOSSA: The cerebellum and brainstem are intact. The 4th ventricle is midline. The cerebellopontine angle is unremarkable. The cerebellar tonsils are normal in position. DIFFUSION IMAGING: No focal areas of restricted diffusion are seen. No evidence of acute infarction. EXTRACRANIAL: The visualized portions of the orbits are unremarkable. There is mucoperiosteal disease involving the sphenoid sinus. CONCLUSION: 1. No acute intracranial abnormality identified. 2. Mucoperiosteal sinus disease involving the sphenoid sinus. Gonzales Charles MD on April 25, 2017 at 15:34 Board Certified Radiologist. This report was verified electronically.
[2017-04-25] MEDS: POTASSIUM CHLOR 10 MEQ PREMIX 100 ML IV SCH ×3 (16:00→19:32)
[2017-04-25] MEDS: POLYETHYLENE GLYCOL 17 GM PKG PO SCH ×4 (16:00→22:36)
[2017-04-25] MEDS: WARFARIN SOD 5 MG TAB PO SCH (16:33)
[2017-04-25] MEDS: LEVOFLOXACIN 750 MG PREMIX INJ 150 ML IV SCH (20:40)
[2017-04-25] MEDS: SODIUM CHLORIDE 0.9% FLUSH 10 ML FLUSH IV FLUSH SCH (20:40)
[2017-04-25 22:35] LABS: ALBUMIN SPE 4.46 GM/DL (3.50-5.00); ALPHA 1 GLOBULIN 0.19 GM/DL (0.11-0.29); ALPHA 2 GLOBULIN 0.94 GM/DL (0.22-1.00); BETA GLOBULINS (SPE) 0.9 GM/DL (0.53-1.03)
--- NOTE | 2017-04-25 23:55 | HHI.PR ---
Subjective Remarks Patient seen this afternoon. Says she is feeling better. Chronic osteoarthritis pain on massive doses of narcotics. Family concerned. I recommend stopping narcotics. Patient wishes for second opinion from pain management as an outpatient. Objective Vital Signs Date Time Temp Pulse Resp B/P Pulse Ox O2 Delivery O2 Flow Rate FiO2 04/25/17 20:00 96.7 85 20 145/71 96 04/25/17 16:43 96.7 72 18 138/73 97 04/25/17 12:37 98.3 86 18 145/70 96 04/25/17 08:20 97.7 94 18 148/71 95 04/25/17 07:03 92 131/66 04/25/17 07:00 91 04/25/17 04:00 97.5 100 20 180/87 95 04/25/17 00:35 113 04/25/17 00:35 104 04/25/17 00:34 112 04/25/17 00:00 98.6 91 20 156/77 96 I/O 04/24/17 04/24/17 04/24/17 04/25/17 04/25/17 04/25/17 07:00 15:00 23:00 07:00 15:00 23:00 Intake Total 440 ml 120 ml Output Total 500 ml Balance -500 ml 440 ml 120 ml Intake Oral 240 ml 120 ml IV Total 200 ml Output Urine Total 500 ml # Voids 1 2 3 1 # Bowel Movements 1 2 2 0 Result Diagram: 04/25/17 1124 04/25/17 1124 Objective Remarks GENERAL: patient sitting up in bed. Appears comfortable. Somnolent, wakes up for exam. SKIN: Warm and dry. HEAD: Normocephalic. EYES: No scleral icterus. No injection or drainage. NECK: Supple, trachea midline. No JVD. CARDIOVASCULAR: Regular rate and rhythm without murmurs, gallops, or rubs. RESPIRATORY: Breath sounds equal bilaterally. No accessory muscle use. GASTROINTESTINAL: Abdomen soft, non-tender, nondistended. MUSCULOSKELETAL: No cyanosis, or edema. BACK: Nontender without obvious deformity. No CVA tenderness. A/P Assessment and Plan ===04/25/17 -Stercoral colitislikely secondary to narcotics. discussed with GI. Appreciate GI assistance. -Sepsis, Pneumonia. Likely aspiration secondary to narcotics Improving. Continue antibiotics, with metronidazole for anaerobic coverage. //Narcotic dependence. Strongly recommend weaning off. Long discussion with family This is a 56 year old female patient with a past medical history which includes antiphospholipid syndrome, atrial fibrillation, chronic bilateral knee pain, peripheral neuropathy, anxiety/depression, hypertension, hyperlipidemia and coronary artery disease. Patient appears weak and is a poor historian at this time information gathered from patient as well as prior charting. Patient reports that her called the ambulance because she was not taking her medication. It appears that patient has had generalized weakness and poor by mouth intake. Patient labs reveal WBC 22, Neutrophil percent 85, appear hemoconcentrated, BUN 41, creatine 0.93 estimated GFR 62, potassium 3.3, magnesium 2.5, alk phosphatase 123 troponin 0.32, 0.30 TSH 0.256 //Sepsis by criteria (HR 101, WBC 22.0, with suspected source pna) generalized weakness Leukocytosis pna possible UTI CXR reviewed and reveals 1. Mediastinal prominence which is new compared to previous of 11/01/13. CT imaging of the thorax to excluded adenopathy versus aneurysmal dilation of the ascending aorta is warranted CT chest with contrast reviewed and reveals 1. Examination quality degraded secondary to patient motion. No PE is identified. 2. Subtle airspace opacity in the right middle lobe and right lower lobe. The appearance favors an infectious or inflammatory process. Levaquin 750mg IV AMS likely secondary to metabolic encephalopathy vs TIA/CVA CT head reviewed and reveals 1. No acute intracranial abnormality. 2. Sphenoid sinusitis, chronic MRI ordered //severe dehydration -appears hemoconcentrated 1L NS bolus given in ER IV fluids NS at 100ml/H recheck CBC, BMP now //Elevated troponin 0.32, 0.030, possible demand ischemia secondary to sepsis R/ O ACS continue serial enzymes Initial EKG reveals SR first degree AV block HR 90bpm, ST depression leads II , AVF, V3, V4 and V5 with LVH continue serial EKG continuous telemetry monitoring //Atrial fibrillation- chronic currently in SR Continue home medications warfarin, Sotalol, Digoxin //abdominal pain with diarrhea //Colitis stool for C diff negative CT abdomen/Pelvis reviewed and reveals 1. Examination quality degraded secondary to patient motion. No PE is identified. 2. Subtle airspace opacity in the right middle lobe and right lower lobe. The appearance favors an infectious or inflammatory process. Patient previously started on Levaquin for pna will add Flagyl IV //Narcotic dependence. Strongly recommend weaning off. //abdominal pain with diarrhea //Colitis stool for C diff negative CT abdomen/Pelvis reviewed and reveals 1. Examination quality degraded secondary to patient motion. No PE is identified. 2. Subtle airspace opacity in the right middle lobe and right lower lobe. The appearance favors an infectious or inflammatory process. Patient previously started on Levaquin for pna will add Flagyl IV //DVT prophylaxis patient in Coumadin Jose Stephens MD Apr 25, 2017 23:55
[2017-04-26] VITALS (7 sets, daily range): BP systolic 133–163; BP diastolic 68–82; PULSE 76–90; RESP 20–22; TEMP 97.8–98.9; O2SAT 93–97
[2017-04-26] MEDS: metroNIDAZOLE 500 MG INJ 100 ML IV SCH ×3 (04:26→21:53)
[2017-04-26] MEDS: GEMFIBROZIL 600 MG TAB PO SCH ×2 (06:27→15:11)
[2017-04-26] MEDS: OXYBUTYNIN CHLORIDE 5 MG TAB PO SCH ×2 (06:27→13:19)
[2017-04-26] MEDS: buPROPion HCL 100 MG SUSTAINED RELEASE TAB PO SCH (09:00)
[2017-04-26] MEDS: DOCUSATE SODIUM 50 MG/SENNA 8.6 MG TAB PO SCH ×2 (09:00→21:51)
[2017-04-26] MEDS: RELISTOR PO SCH (09:00)
[2017-04-26] MEDS: PANTOPRAZOLE SOD 40 MG DELAYED RELEASE TAB PO SCH (09:00)
[2017-04-26] MEDS: PREGABALIN 75 MG CAP PO SCH ×2 (09:00→21:51)
[2017-04-26] MEDS: SODIUM CHLORIDE 0.9% FLUSH 10 ML FLUSH IV FLUSH SCH ×2 (09:00→21:53)
[2017-04-26] MEDS: DIGOXIN 0.125 MG TAB PO SCH (09:00)
[2017-04-26] MEDS: SOTALOL HCL 80 MG TAB PO SCH ×2 (09:00→21:51)
[2017-04-26] MEDS: PARoxetine HCL 20 MG TAB PO SCH (09:00)
--- NOTE | 2017-04-26 10:11 | PD.CONS ---
HPI Consult Requested By Primary Care Physician Uziel Quinn MD History of Present Illness 56 year old female with a past medical history significant for antiphospholipid syndrome, atrial fibrillation on warfarin, anxiety/depression, hypertension, hyperlipidemia and coronary artery disease admitted with generalized weakness and dehydration. She was found to have leukocytosis and ABD CT scan showed stercoral colitis/proctitis and also PNA. Also found to have elevated troponin and changes in EKG. Cardiology consulted for further evaluation and management. No chest pain, SOB, palpitations, syncope. Poor historian Review of Systems ROS Limitations: Poor Historian Consitutional: COMPLAINS OF: Fatigue Eyes: DENIES: Amaurosis [place], Change in vision HEENT: DENIES: Lightheadedness, Change in hearing Respiratory: DENIES: See HPI, Cough, Snoring, Shortness of breath, Wheezing, Sputum production Cardiovascular: DENIES: See HPI, Chest pain, Palpitations, Syncope, Tachycardia Gastrointestinal: DENIES: Nausea, Vomiting, Change in bowel habits, Reflux, Bloody stools, Melena Genitourinary: DENIES: Urinary incontinence, Difficulty voiding Integumentary: DENIES: Rash Neurologic: DENIES: Tingling or numbness, Memory problems, Poor Balance, Stroke symptoms Musculoskeletal: DENIES: Joint pain, Muscle pain, Limited range of motion, Back pain Psychiatric: DENIES: Anxiety, Depression, Sleep disturbances Hematologic: DENIES: Bruising tendencies, Bleeding tendencies Endocrine: DENIES: Weight gain, Weight loss, Thyroid disease Past Family Social History Allergies: Coded Allergies: Bee Sting (Verified Allergy, Severe, RESPIRATORY DISTRESS AND SWELLING, ) Erythromycin (Verified Allergy, Severe, Skin ERUPTIONS, 05/17/14) Penicillin (Verified Allergy, Severe, UNKNOWN, 05/17/14) Tetracycline (Verified Allergy, Severe, SKIN ERRUPTIONS, 05/17/14) *MDRO Multi-Drug Resistant Organism (Verified Allergy, Unknown, 05/17/14) 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 Antiphospholipid syndrome 2. Atrial fibrillation, but states she has been in sinus rhythm since the first episode. 3. Chronic bilateral knee pain 4. Peripheral neuropathy 5. Anxiety/depression 6. Hypertension 7. Hyperlipidemia 8. coronary artery disease. Past Surgical History 1. Cholecystectomy 2. Heart catheterization 3. Hysterectomy 4. Carpal tunnel right wrist 5. Tonsillectomy 6. Arthroscopy left knee 7. Venous stripping of the right leg Reported Medications Reported Meds & Active Scripts Active Reported Robaxin (Methocarbamol) 750 Mg Tab 750 Mg PO TID Sotalol (Sotalol HCl) 80 Mg Tab 40 Mg PO BID Digoxin 0.125 Mg Tab 125 Mcg PO DAILY Pantoprazole (Pantoprazole Sodium) 40 Mg Tab 40 Mg PO DAILY Relistor (Methylnaltrexone [place]) 150 Mg Tab 450 Mg PO DAILY Gemfibrozil 600 Mg Tab 600 Mg PO BID Take 30 minutes prior to breakfast and dinner. Ditropan (Oxybutynin Chloride) 5 Mg Tab 5 Mg PO Q8HR Paxil (Paroxetine HCl) 40 Mg Tablet 40 Mg PO DAILY Warfarin 5 Mg Tab 5 Mg PO DAILY Bupropion HCl ER 12 HR (Bupropion HCl) 100 Mg Tab 100 Mg PO DAILY Morphine ER (Morphine Sulfate) 100 Mg Tab 125 Mg PO DAILY Lyrica (Pregabalin) 150 Mg Cap 150 Mg PO BID Voltaren (Diclofenac Sodium) 25 Mg Tab 75 Mg PO BID Active Ordered Medications Current Medications Medications (Trade) Dose Ordered Sig/Agustin Route Start Time Stop Time Status Last Admin (NS 1000 ml Inj) 1,000 ml @ 100 mls/hr Q10H IV 04/24/17 17:40 04/25/17 22:40 (NS Flush) 2 ml UNSCH PRN IV FLUSH 04/24/17 17:45 (NS Flush) 2 ml BID IV FLUSH 04/24/17 21:00 04/25/17 20:40 (Zofran Inj) 4 mg Q6H PRN IVP 04/24/17 17:45 (Narcan Inj) 0.4 mg UNSCH PRN IV 04/24/17 17:45 (Gayle-Colace) 1 tab BID PO 04/24/17 21:00 04/25/17 20:41 (Milk Of Magnesia Liq) 30 ml Q12H PRN PO 04/24/17 17:45 (Senokot) 17.2 mg Q12H PRN PO 04/24/17 17:45 (Dulcolax Supp) 10 mg DAILY PRN RECTAL 04/24/17 17:45 Lactulose 30 ml 30 ml DAILY PRN PO 04/24/17 17:45 (Levaquin 750 Mg Premix Inj) 150 ml @ 100 mls/hr Q24H IV 04/24/17 20:00 04/25/17 20:40 (Wellbutrin Sr 12 Hr) 100 mg DAILY PO 04/25/17 09:00 04/25/17 09:02 (Lanoxin) 0.125 mg DAILY PO 04/25/17 09:00 04/25/17 09:02 (Lopid) 600 mg BIDAC PO 04/25/17 07:00 04/26/17 06:27 (Ditropan) 5 mg Q8HR PO 04/25/17 06:00 04/26/17 06:27 (Protonix) 40 mg DAILY PO 04/25/17 09:00 04/25/17 09:01 (Lyrica) 150 mg BID PO 04/25/17 09:00 04/25/17 20:41 (Betapace) 40 mg BID PO 04/25/17 09:00 04/25/17 20:41 (Coumadin) 5 mg DAILY@16 PO 04/25/17 16:00 04/25/17 16:33 Patient Own Medication PT OWN MED: RELIS... DAILY PO 04/25/17 09:00 Paroxetine HCl 40 mg 40 mg DAILY PO 04/25/17 09:00 04/25/17 09:02 (Flagyl 500 Mg Inj) 100 ml @ 100 mls/hr Q8H IV 04/25/17 05:00 04/26/17 04:26 (Vasotec Inj) 1.25 mg Q6H PRN IV PUSH 04/25/17 04:30 04/25/17 04:44 Physical Exam Vital Signs Vital Signs Date Time Temp Pulse Resp B/P Pulse Ox O2 Delivery O2 Flow Rate FiO2 04/26/17 08:00 98.7 87 21 135/77 95 04/26/17 04:00 97.8 84 20 146/82 04/26/17 00:00 98.9 81 20 133/68 96 04/25/17 20:00 96.7 85 20 145/71 96 04/25/17 16:43 96.7 72 18 138/73 97 04/25/17 12:37 98.3 86 18 145/70 96 Physical Exam GENERAL: Well-nourished, well-developed patient. SKIN: Warm and dry. HEAD: Normocephalic. EYES: No scleral icterus. No injection or drainage. NECK: Supple, trachea midline. No JVD or lymphadenopathy. CARDIOVASCULAR: Regular rate and rhythm without murmurs, gallops, or rubs. RESPIRATORY: Breath sounds equal bilaterally. No accessory muscle use. GASTROINTESTINAL: Abdomen soft, non-tender, nondistended. EXTREMITIES: No cyanosis, or edema. NEUROLOGICAL: Awake, alert, and oriented x 3. Non-focal. Laboratory Laboratory Tests Test 04/25/17 11:24 White Blood Count 26.8 Red Blood Count 5.58 Hemoglobin 13.9 Hematocrit 41.7 Mean Corpuscular Volume 74.9 Mean Corpuscular Hemoglobin 24.9 Mean Corpuscular Hemoglobin 33.3 Concent Red Cell Distribution Width 16.3 Platelet Count 383 Mean Platelet Volume 9.0 Neutrophils (%) (Auto) 79.4 Lymphocytes (%) (Auto) 12.1 Monocytes (%) (Auto) 7.6 Eosinophils (%) (Auto) 0.5 Basophils (%) (Auto) 0.4 Neutrophils # (Auto) 21.2 Lymphocytes # (Auto) 3.2 Monocytes # (Auto) 2.0 Eosinophils # (Auto) 0.1 Basophils # (Auto) 0.1 CBC Comment DIFF FINAL Differential Comment Sodium Level 137 Potassium Level 3.6 Chloride Level 103 Carbon Dioxide Level 23.4 Anion Gap 11 Blood Urea Nitrogen 44 Creatinine 1.04 Estimat Glomerular Filtration 55 Rate Random Glucose 106 Calcium Level 11.1 Total Bilirubin 0.9 Aspartate Amino Transf 16 (AST/SGOT) Alanine Aminotransferase 19 (ALT/SGPT) Alkaline Phosphatase 100 Total Protein 8.1 Albumin 3.4 Albumin/Globulin Ratio 1.22 Gydgo-1-Kwpwvhtfo 0.19 Ncdwx-8-Wzwgxdkcp 0.94 Beta Globulins 0.90 Gamma Globulins 1.61 Electrophoresis Pathologist Comment Date/Time Procedure Status Source Growth 04/24/17 18:33 Urine Culture - Final Complete Urine Catheterized Urine Escherichia Coli Result Diagram: 04/25/17 1124 04/25/17 1124 Imaging Last Impressions Head Magnetic Resonance Angiography 04/25/17 0000 Signed Impressions: Service Date/Time: April 14:41 - CONCLUSION: 1. Negative examination. Gonzales Charles MD Carotid Artery Ultrasound 04/25/17 0000 Signed Impressions: Service Date/Time: April 09:25 - CONCLUSION: 1. Mild calcified carotid plaque bilaterally without significant flow-limiting stenosis. 2. Antegrade vertebral artery flow. Shahriar Isaac MD Brain MRI 04/25/17 0000 Signed Impressions: Service Date/Time: April 14:41 - CONCLUSION: 1. No acute intracranial abnormality identified. 2. Mucoperiosteal sinus disease involving the sphenoid sinus. Gonzales Charles MD Abdomen X-Ray 04/25/17 0000 Signed Impressions: Service Date/Time: April 13:55 - CONCLUSION: 1. Constipation. Bladder distended with contrast. Multiple surgical clips right upper quadrant. Marty Lundberg MD Head CT 04/24/17 1539 Signed Impressions: Service Date/Time: Monday, April 24, 2017 16:29 - CONCLUSION: 1. No acute intracranial abnormality. 2. Sphenoid sinusitis, chronic. Shahriar Isaac MD Chest X-Ray 04/24/17 1539 Signed Impressions: Service Date/Time: Monday, April 24, 2017 16:00 - CONCLUSION: 1. Mediastinal prominence which is new compared to previous of 11/01/13. CT imaging of the thorax to excluded adenopathy versus aneurysmal dilation of the ascending aorta is warranted. Gonzales Charles MD Lower Extremity Ultrasound 04/24/17 0000 Signed Impressions: Service Date/Time: Monday, April 24, 2017 20:59 - CONCLUSION: No DVT is identified within the lower extremities. Krishan Tineo MD CT Angiography 04/24/17 0000 Signed Impressions: Service Date/Time: Monday, April 24, 2017 18:05 - CONCLUSION: 1. Examination quality degraded secondary to patient motion. No PE is identified. 2. Subtle airspace opacity in the right middle lobe and right lower lobe. The appearance favors an infectious or inflammatory process. Krishan Tineo MD Abdomen/Pelvis CT 04/24/17 0000 Signed Impressions: Service Date/Time: April 01:56 - CONCLUSION: Apparent stercoral colitis/proctitis; large amount of stool in the rectum with associated inflammatory changes. No abscess or perforation demonstrated. Krishna Chino MD Assessment and Plan Problem List: (1) Troponin level elevated Assessment and Plan: No CV complaints. Elevated troponin, likely secondary from demand ischemia given sepsis/infection. Acute Renal Failure this AM. No invasive cardiac assesment at time given active infection and CONSTANZA. She has no CV complaints. EKG sinus rythm with LVH by voltage with associated ST changes. Recommendations: 1. Continue home cardiac medications 2. 2Dechocardiogram 3. Follow up with cardiology upon discharge Thank you for the opportunity to participate in the care of this patient Will be available on a PRN basis for any questions or concerns (2) Colitis (3) Leukocytosis (4) Sepsis (5) Altered mental status (6) PNA (pneumonia) (7) Weakness (8) Anemia Frankie Junior MD Apr 26, 2017 10:11
--- NOTE | 2017-04-26 14:15 | HHI.GIFU ---
Subjective Remarks Pt resting in bed, visiting with son. Says she feels better, her abd pain improved. per RN she had multiple stools , some liquid with some solid material. Objective Vitals I&O Vital Signs Date Time Temp Pulse Resp B/P Pulse Ox O2 Delivery O2 Flow Rate FiO2 04/26/17 12:00 98.5 83 21 163/77 97 04/26/17 08:00 98.7 87 21 135/77 95 04/26/17 04:00 97.8 84 20 146/82 04/26/17 00:00 98.9 81 20 133/68 96 04/25/17 20:00 96.7 85 20 145/71 96 04/25/17 16:43 96.7 72 18 138/73 97 I/O 04/25/17 04/25/17 04/25/17 04/26/17 04/26/17 04/26/17 07:00 15:00 23:00 07:00 15:00 23:00 Intake Total 440 ml 120 ml 1550 ml Balance 440 ml 120 ml 1550 ml Intake Oral 240 ml 120 ml IV Total 200 ml 1550 ml # Voids 2 3 1 1 # Bowel Movements 2 2 0 1 Laboratory Date/Time Procedure Status Source Growth 04/24/17 18:33 Urine Culture - Final Complete Urine Catheterized Urine Escherichia Coli Imaging Last Impressions Head Magnetic Resonance Angiography 04/25/17 0000 Signed Impressions: Service Date/Time: April 14:41 - CONCLUSION: 1. Negative examination. Gonzales Charles MD Carotid Artery Ultrasound 04/25/17 0000 Signed Impressions: Service Date/Time: April 09:25 - CONCLUSION: 1. Mild calcified carotid plaque bilaterally without significant flow-limiting stenosis. 2. Antegrade vertebral artery flow. Shahriar Isaac MD Brain MRI 04/25/17 0000 Signed Impressions: Service Date/Time: April 14:41 - CONCLUSION: 1. No acute intracranial abnormality identified. 2. Mucoperiosteal sinus disease involving the sphenoid sinus. Gonzales Charles MD Abdomen X-Ray 04/25/17 0000 Signed Impressions: Service Date/Time: April 13:55 - CONCLUSION: 1. Constipation. Bladder distended with contrast. Multiple surgical clips right upper quadrant. Marty Lundberg MD Head CT 04/24/17 1539 Signed Impressions: Service Date/Time: Monday, April 24, 2017 16:29 - CONCLUSION: 1. No acute intracranial abnormality. 2. Sphenoid sinusitis, chronic. Shahriar Isaac MD Chest X-Ray 04/24/17 1539 Signed Impressions: Service Date/Time: Monday, April 24, 2017 16:00 - CONCLUSION: 1. Mediastinal prominence which is new compared to previous of 11/01/13. CT imaging of the thorax to excluded adenopathy versus aneurysmal dilation of the ascending aorta is warranted. Gonzales Charles MD Lower Extremity Ultrasound 04/24/17 0000 Signed Impressions: Service Date/Time: Monday, April 24, 2017 20:59 - CONCLUSION: No DVT is identified within the lower extremities. Krishan Tineo MD CT Angiography 04/24/17 0000 Signed Impressions: Service Date/Time: Monday, April 24, 2017 18:05 - CONCLUSION: 1. Examination quality degraded secondary to patient motion. No PE is identified. 2. Subtle airspace opacity in the right middle lobe and right lower lobe. The appearance favors an infectious or inflammatory process. Krishan Tineo MD Abdomen/Pelvis CT 04/24/17 0000 Signed Impressions: Service Date/Time: April 01:56 - CONCLUSION: Apparent stercoral colitis/proctitis; large amount of stool in the rectum with associated inflammatory changes. No abscess or perforation demonstrated. Krishan Chino MD Physical Exam HEENT: PERRL; normocephalic; atraumatic; no jaundice CHEST: CTA CARDIAC: RRR ABDOMEN: Soft, nondistended, nontender; no hepatosplenomegaly; bowel sounds are present in all four quadrants. EXTREMITIES: No clubbing, cyanosis, or edema. SKIN: Normal; no rash; no jaundice. RESEARCH CLERK: alert, more oriented than yesterday Assessment and Plan Plan ASSESSMENT - diarrhea - pt claims onset watery stool prior to admission but unable to get much meaningful info from her. She has chronic constipation likely 2/2 opioid use, takes relistor at home. CT 04-25-17--> Apparent stercoral colitis/proctitis; large amount of stool in the rectum with associated inflammatory changes. No abscess or perforation demonstrated. could be overflow diarrhea. s/p SSE, miralax with + BM liquid and some solid material. KUB 6-22-17--> constipation. - abdominal pain - improved. lower abdominal TTP, likely 2/[address] as above. - AMS - per primary, metabolic encephalopathy vs TIA/CVA - Sepsis - per primary, poss PNA PLAN - continue miralax - full liquid - further recommendations to follow This pt seen by myself and Dr Deal and this note is written on his behalf Giovana Sofia Apr 26, 2017 14:15
[2017-04-26] MEDS: POLYETHYLENE GLYCOL 17 GM PKG PO SCH ×2 (15:11→18:33)
[2017-04-26] MEDS: WARFARIN SOD 5 MG TAB PO SCH (15:11)
--- NOTE | 2017-04-26 16:36 | EKG ---
Date Performed: 04/25/2017 Time Performed: 00:39:16 PTAGE: 56 years EKG: SINUS TACHYCARDIA POSSIBLE RIGHT ATRIAL ENLARGEMENT ST DEVIATION AND MODERATE T-WAVE ABNORM ALITY, CONSIDER INFERIOR ISCHEMIA ABNORMAL ECG Compared to PREVIOUS TRACING , previously present ischemic changes inferiorly and anterolaterally are no longer present. PREVIOUS TRACIN04/24/2017 15.42 DOCTOR: Aysha Ravi Interpretating Date/Time 04/26/2017 16:36:04
--- NOTE | 2017-04-26 19:22 | HHI.PR ---
Subjective Remarks Patient seen this afternoon around 2 PM. Says she is feeling better. Denies any chest pain or shortness of breath. Improved alertness from yesterday. Positive hard bowel movement. Abdomen feels much more comfortable today. She denies any dysuria. Objective Vital Signs Date Time Temp Pulse Resp B/P Pulse Ox O2 Delivery O2 Flow Rate FiO2 04/26/17 16:00 98.9 76 21 145/69 97 04/26/17 12:00 98.5 83 21 163/77 97 04/26/17 08:00 98.7 87 21 135/77 95 04/26/17 07:00 78 04/26/17 04:00 97.8 84 20 146/82 04/26/17 00:00 98.9 81 20 133/68 96 04/25/17 20:00 96.7 85 20 145/71 96 I/O 04/25/17 04/25/17 04/25/17 04/26/17 04/26/17 04/26/17 07:00 15:00 23:00 07:00 15:00 23:00 Intake Total 440 ml 120 ml 1550 ml 240 ml Balance 440 ml 120 ml 1550 ml 240 ml Intake Oral 240 ml 120 ml 240 ml IV Total 200 ml 1550 ml # Voids 2 3 1 1 2 # Bowel Movements 2 2 0 1 2 1 Result Diagram: 04/25/17 1124 04/25/17 1124 Objective Remarks GENERAL: patient sitting up in bed. Appears comfortable. awake, alert and oriented today. SKIN: Warm and dry. HEAD: Normocephalic. EYES: No scleral icterus. No injection or drainage. NECK: Supple, trachea midline. No JVD. CARDIOVASCULAR: Regular rate and rhythm without murmurs, gallops, or rubs. RESPIRATORY: Breath sounds equal bilaterally. No accessory muscle use. GASTROINTESTINAL: Abdomen soft, non-tender, nondistended. MUSCULOSKELETAL: No cyanosis, or edema. BACK: Nontender without obvious deformity. No CVA tenderness. A/P Assessment and Plan ===04/26/17 -Constipation improved. Again discussed with gastroenterology. Continue off narcotics Improvement in respiratory status. Continue antibiotics for pneumonia Appreciate cardiology consultation. Follow with cardiology as outpatient. This is a 56 year old female patient with a past medical history which includes antiphospholipid syndrome, atrial fibrillation, chronic bilateral knee pain, peripheral neuropathy, anxiety/depression, hypertension, hyperlipidemia and coronary artery disease. Patient appears weak and is a poor historian at this time information gathered from patient as well as prior charting. Patient reports that her called the ambulance because she was not taking her medication. It appears that patient has had generalized weakness and poor by mouth intake. Patient labs reveal WBC 22, Neutrophil percent 85, appear hemoconcentrated, BUN 41, creatine 0.93 estimated GFR 62, potassium 3.3, magnesium 2.5, alk phosphatase 123 troponin 0.32, 0.30 TSH 0.256 //Sepsis by criteria (HR 101, WBC 22.0, with suspected source pna) generalized weakness Leukocytosis pna possible UTI CXR reviewed and reveals 1. Mediastinal prominence which is new compared to previous of 11/01/13. CT imaging of the thorax to excluded adenopathy versus aneurysmal dilation of the ascending aorta is warranted CT chest with contrast reviewed and reveals 1. Examination quality degraded secondary to patient motion. No PE is identified. 2. Subtle airspace opacity in the right middle lobe and right lower lobe. The appearance favors an infectious or inflammatory process. Levaquin 750mg IV AMS likely secondary to metabolic encephalopathy vs TIA/CVA CT head reviewed and reveals 1. No acute intracranial abnormality. 2. Sphenoid sinusitis, chronic MRI ordered //severe dehydration -appears hemoconcentrated 1L NS bolus given in ER IV fluids NS at 100ml/H recheck CBC, BMP now //Elevated troponin 0.32, 0.030, possible demand ischemia secondary to sepsis R/ O ACS continue serial enzymes Initial EKG reveals SR first degree AV block HR 90bpm, ST depression leads II , AVF, V3, V4 and V5 with LVH continue serial EKG continuous telemetry monitoring //Atrial fibrillation- chronic currently in SR Continue home medications warfarin, Sotalol, Digoxin //abdominal pain with diarrhea //Colitis stool for C diff negative CT abdomen/Pelvis reviewed and reveals 1. Examination quality degraded secondary to patient motion. No PE is identified. 2. Subtle airspace opacity in the right middle lobe and right lower lobe. The appearance favors an infectious or inflammatory process. Patient previously started on Levaquin for pna will add Flagyl IV //abdominal pain with diarrhea //Colitis stool for C diff negative CT abdomen/Pelvis reviewed and reveals 1. Examination quality degraded secondary to patient motion. No PE is identified. 2. Subtle airspace opacity in the right middle lobe and right lower lobe. The appearance favors an infectious or inflammatory process. Patient previously started on Levaquin for pna will add Flagyl IV //DVT prophylaxis patient in Coumadin Discharge Planning possible discharge to SNF in the next 2 days. Jose Stephens MD Apr 26, 2017 19:22
[2017-04-26] MEDS: LEVOFLOXACIN 750 MG PREMIX INJ 150 ML IV SCH (21:52)
[2017-04-26] MEDS: SODIUM CHLOR 0.9% 1000 ML INJ 1,000 ML IV SCH (21:53)
[2017-04-27] VITALS (7 sets, daily range): BP systolic 112–155; BP diastolic 65–80; PULSE 77–97; RESP 18–24; TEMP 97.3–99.7; O2SAT 95–100
[2017-04-27] MEDS: GEMFIBROZIL 600 MG TAB PO SCH ×2 (06:06→16:05)
[2017-04-27] MEDS: SODIUM CHLOR 0.9% 1000 ML INJ 1,000 ML IV SCH ×3 (06:07→20:56)
[2017-04-27] MEDS: metroNIDAZOLE 500 MG INJ 100 ML IV SCH ×3 (06:07→20:55)
[2017-04-27] MEDS: PARoxetine HCL 20 MG TAB PO SCH (08:45)
[2017-04-27] MEDS: buPROPion HCL 100 MG SUSTAINED RELEASE TAB PO SCH (08:45)
[2017-04-27] MEDS: DIGOXIN 0.125 MG TAB PO SCH (08:45)
[2017-04-27] MEDS: PANTOPRAZOLE SOD 40 MG DELAYED RELEASE TAB PO SCH (08:45)
[2017-04-27] MEDS: DOCUSATE SODIUM 50 MG/SENNA 8.6 MG TAB PO SCH ×2 (08:45→20:56)
[2017-04-27] MEDS: SODIUM CHLORIDE 0.9% FLUSH 10 ML FLUSH IV FLUSH SCH ×2 (08:45→20:56)
[2017-04-27] MEDS: SOTALOL HCL 80 MG TAB PO SCH ×2 (08:45→20:56)
[2017-04-27] MEDS: PREGABALIN 75 MG CAP PO SCH ×2 (08:45→20:55)
[2017-04-27] MEDS: RELISTOR PO SCH (08:46)
[2017-04-27 11:41] LABS: AUTOMATED NEUTROPHIL # 9.7 TH/MM3 (1.8-7.7); BASOPHIL # 0.1 TH/MM3 (0-0.2); BASOPHIL % 0.6 % (0.0-2.0); EOSINOPHIL # 0.1 TH/MM3 (0-0.4); EOSINOPHIL % 0.7 % (0.0-4.0); HEMATOCRIT 34.4 % (35.0-46.0); HEMO FLAGS DIFF FINAL; LYMPH % 18.3 % (9.0-44.0); LYMPHOCYTE # 2.5 TH/MM3 (1.0-4.8); MEAN CELL VOLUME 77.3 FL (80.0-100.0); MEAN CORPUSCULAR HEMOGLOBIN 24.6 PG (27.0-34.0); MEAN CORPUSCULAR HGB CONC 31.9 % (32.0-36.0); MONO % 8.2 % (0.0-8.0); NEUT % 72.2 % (16.0-70.0); PLATELET COUNT 274 TH/MM3 (150-450); RED BLOOD COUNT 4.46 MIL/MM3 (4.00-5.30); RED CELL DISTRIBUTION WIDTH 17.1 % (11.6-17.2); WHITE BLOOD COUNT 13.4 TH/MM3 (4.0-11.0)
[2017-04-27 12:16] LABS: BICARBONATE 22.3 MEQ/L (21.0-32.0); MAGNESIUM 1.8 MG/DL (1.5-2.5); POTASSIUM 3.5 MEQ/L (3.5-5.1)
--- NOTE | 2017-04-27 13:24 | HHI.PR ---
Subjective Remarks pt says feels well. no CP or SOB. no N/v. abd pain resolved. Bowel movement. Objective Vital Signs Date Time Temp Pulse Resp B/P Pulse Ox O2 Delivery O2 Flow Rate FiO2 04/27/17 12:03 98.5 78 20 112/75 97 04/27/17 09:10 91 04/27/17 08:33 98.8 97 19 122/65 99 04/27/17 04:00 99.7 77 20 155/80 95 04/27/17 00:00 98.8 78 18 145/72 95 04/26/17 20:00 98.0 90 22 155/81 93 04/26/17 16:00 98.9 76 21 145/69 97 I/O 04/26/17 04/26/17 04/26/17 04/27/17 04/27/17 04/27/17 07:00 15:00 23:00 07:00 15:00 23:00 Intake Total 1550 ml 240 ml Balance 1550 ml 240 ml Intake Oral 240 ml IV Total 1550 ml # Voids 1 2 1 1 # Bowel Movements 1 2 2 1 Result Diagram: 04/27/17 1054 04/27/17 1054 Objective Remarks GENERAL: patient sitting up in bed. Appears comfortable. awake, alert and oriented today. no change on exam. SKIN: Warm and dry. HEAD: Normocephalic. EYES: No scleral icterus. No injection or drainage. NECK: Supple, trachea midline. No JVD. CARDIOVASCULAR: Regular rate and rhythm without murmurs, gallops, or rubs. RESPIRATORY: Breath sounds equal bilaterally. No accessory muscle use. GASTROINTESTINAL: Abdomen soft, non-tender, nondistended. MUSCULOSKELETAL: No cyanosis, or edema. BACK: Nontender without obvious deformity. No CVA tenderness. A/P Assessment and Plan ===04/27/17 //Hypophosphatemia. Likely secondary to improve nutrition. Replace. //Pneumonia. Breathing Comfortably. Continue antibiotics to complete treatment course. //Sepsis continues. Leukocytosis and vital signs are improving. Continue antibiotics //Atrial fibrillation. INR ordered - Follow with cardiology as outpatient. This is a 56 year old female patient with a past medical history which includes antiphospholipid syndrome, atrial fibrillation, chronic bilateral knee pain, peripheral neuropathy, anxiety/depression, hypertension, hyperlipidemia and coronary artery disease. Patient appears weak and is a poor historian at this time information gathered from patient as well as prior charting. Patient reports that her called the ambulance because she was not taking her medication. It appears that patient has had generalized weakness and poor by mouth intake. Patient labs reveal WBC 22, Neutrophil percent 85, appear hemoconcentrated, BUN 41, creatine 0.93 estimated GFR 62, potassium 3.3, magnesium 2.5, alk phosphatase 123 troponin 0.32, 0.30 TSH 0.256 //Sepsis by criteria (HR 101, WBC 22.0, with suspected source pna) //generalized weakness //Leukocytosis //pna //possible UTI CXR reviewed and reveals 1. Mediastinal prominence which is new compared to previous of 11/01/13. CT imaging of the thorax to excluded adenopathy versus aneurysmal dilation of the ascending aorta is warranted CT chest with contrast reviewed and reveals 1. Examination quality degraded secondary to patient motion. No PE is identified. 2. Subtle airspace opacity in the right middle lobe and right lower lobe. The appearance favors an infectious or inflammatory process. Levaquin 750mg IV AMS likely secondary to metabolic encephalopathy vs TIA/CVA CT head reviewed and reveals 1. No acute intracranial abnormality. 2. Sphenoid sinusitis, chronic MRI negative. -And tingling antibiotics for pneumonia and colitis. //severe dehydration -appears hemoconcentrated 1L NS bolus given in ER IV fluids NS at 100ml/H recheck CBC, BMP now //Elevated troponin 0.32, 0.030, possible demand ischemia secondary to sepsis R/ O ACS continue serial enzymes Initial EKG reveals SR first degree AV block HR 90bpm, ST depression leads II , AVF, V3, V4 and V5 with LVH continue serial EKG continuous telemetry monitoring //Atrial fibrillation- chronic currently in SR Continue home medications warfarin, Sotalol, Digoxin //abdominal pain with diarrhea //Colitis stool for C diff negative CT abdomen/Pelvis reviewed and reveals 1. Examination quality degraded secondary to patient motion. No PE is identified. 2. Subtle airspace opacity in the right middle lobe and right lower lobe. The appearance favors an infectious or inflammatory process. Patient previously started on Levaquin for pna will add Flagyl IV //DVT prophylaxis patient in Coumadin Discharge Planning possible discharge to SNF in the next 2 days. Jose Stephens MD Apr 27, 2017 13:24
[2017-04-27] MEDS ORDERED: POTASSIUM CHLORIDE 10 MEQ CAP PO ONE (13:30)
[2017-04-27] MEDS ORDERED: SODIUM PHOSPHATE INJ 15 MMOL in SODIUM CHLORIDE 0.9% INJ 150 ML IV ONE (13:30)
--- NOTE | 2017-04-27 15:31 | HHI.GIFU ---
Subjective Remarks Resting in bed. States she has had multiple bowel movements, both liquid and a large amount of solids- states she clogged the toilet today. No n/v. Pain improving. Tolerating diet and would like this advanced. States she does not want a colonoscopy at this time and will follow up with Dr. Morgan as outpatient. (Pamela Correia) Objective Vitals I&O Vital Signs Date Time Temp Pulse Resp B/P Pulse Ox O2 Delivery O2 Flow Rate FiO2 04/27/17 12:03 98.5 78 20 112/75 97 04/27/17 09:10 91 04/27/17 08:33 98.8 97 19 122/65 99 04/27/17 04:00 99.7 77 20 155/80 95 04/27/17 00:00 98.8 78 18 145/72 95 04/26/17 20:00 98.0 90 22 155/81 93 04/26/17 16:00 98.9 76 21 145/69 97 I/O 04/26/17 04/26/17 04/26/17 04/27/17 04/27/17 04/27/17 07:00 15:00 23:00 07:00 15:00 23:00 Intake Total 1550 ml 240 ml Balance 1550 ml 240 ml Intake Oral 240 ml IV Total 1550 ml # Voids 1 2 1 1 1 # Bowel Movements 1 2 2 1 1 Laboratory Laboratory Tests Test 04/27/17 10:54 White Blood Count 13.4 Red Blood Count 4.46 Hemoglobin 11.0 Hematocrit 34.4 Mean Corpuscular Volume 77.3 Mean Corpuscular Hemoglobin 24.6 Mean Corpuscular Hemoglobin 31.9 Concent Red Cell Distribution Width 17.1 Platelet Count 274 Mean Platelet Volume 9.3 Neutrophils (%) (Auto) 72.2 Lymphocytes (%) (Auto) 18.3 Monocytes (%) (Auto) 8.2 Eosinophils (%) (Auto) 0.7 Basophils (%) (Auto) 0.6 Neutrophils # (Auto) 9.7 Lymphocytes # (Auto) 2.5 Monocytes # (Auto) 1.1 Eosinophils # (Auto) 0.1 Basophils # (Auto) 0.1 CBC Comment DIFF FINAL Differential Comment Sodium Level 139 Potassium Level 3.5 Chloride Level 110 Carbon Dioxide Level 22.3 Anion Gap 7 Blood Urea Nitrogen 16 Creatinine 0.59 Estimat Glomerular Filtration 105 Rate Random Glucose 111 Calcium Level 9.0 Phosphorus Level 1.2 Magnesium Level 1.8 Albumin 2.5 Date/Time Procedure Status Source Growth 04/24/17 18:33 Urine Culture - Final Complete Urine Catheterized Urine Escherichia Coli Imaging Last Impressions Head Magnetic Resonance Angiography 04/25/17 0000 Signed Impressions: Service Date/Time: April 14:41 - CONCLUSION: 1. Negative examination. Gonzales Charles MD Carotid Artery Ultrasound 04/25/17 0000 Signed Impressions: Service Date/Time: April 09:25 - CONCLUSION: 1. Mild calcified carotid plaque bilaterally without significant flow-limiting stenosis. 2. Antegrade vertebral artery flow. Shahriar Isaac MD Brain MRI 04/25/17 0000 Signed Impressions: Service Date/Time: April 14:41 - CONCLUSION: 1. No acute intracranial abnormality identified. 2. Mucoperiosteal sinus disease involving the sphenoid sinus. Gonzales Charles MD Abdomen X-Ray 04/25/17 0000 Signed Impressions: Service Date/Time: April 13:55 - CONCLUSION: 1. Constipation. Bladder distended with contrast. Multiple surgical clips right upper quadrant. Marty Lundberg MD Head CT 04/24/17 1539 Signed Impressions: Service Date/Time: Monday, April 24, 2017 16:29 - CONCLUSION: 1. No acute intracranial abnormality. 2. Sphenoid sinusitis, chronic. Shahriar Isaac MD Chest X-Ray 04/24/17 1539 Signed Impressions: Service Date/Time: Monday, April 24, 2017 16:00 - CONCLUSION: 1. Mediastinal prominence which is new compared to previous of 11/01/13. CT imaging of the thorax to excluded adenopathy versus aneurysmal dilation of the ascending aorta is warranted. Gonzales Charles MD Lower Extremity Ultrasound 04/24/17 0000 Signed Impressions: Service Date/Time: Monday, April 24, 2017 20:59 - CONCLUSION: No DVT is identified within the lower extremities. Krishan Tineo MD CT Angiography 04/24/17 0000 Signed Impressions: Service Date/Time: Monday, April 24, 2017 18:05 - CONCLUSION: 1. Examination quality degraded secondary to patient motion. No PE is identified. 2. Subtle airspace opacity in the right middle lobe and right lower lobe. The appearance favors an infectious or inflammatory process. Krishan Tineo MD Abdomen/Pelvis CT 04/24/17 0000 Signed Impressions: Service Date/Time: April 01:56 - CONCLUSION: Apparent stercoral colitis/proctitis; large amount of stool in the rectum with associated inflammatory changes. No abscess or perforation demonstrated. Krishan Chino MD Physical Exam HEENT: Normocephalic; atraumatic; no jaundice CHEST: CTA CARDIAC: RRR ABDOMEN: Soft, nondistended, nontender; no hepatosplenomegaly; bowel sounds are present in all four quadrants. EXTREMITIES: No clubbing, cyanosis, or edema. SKIN: Normal; no rash; no jaundice. LINING STUFFER: alert and oriented (Pamela Correia) Assessment and Plan Plan ASSESSMENT - Stercoral colitis/proctitis with overflow diarrhea. She has chronic constipation secondary to opioid use and has been taking Relistor at home. She came to the ER for abdominal pain and diarrhea. Abdomen/Pelvis CT (04/24/17)----> Apparent stercoral colitis/proctitis; large amount of stool in the rectum with associated inflammatory changes. No abscess or perforation demonstrated. Abdomen X-Ray ( 04/25/17)----> 1. Constipation. Bladder distended with contrast. Multiple surgical clips right upper quadrant. S/P SSE, S/P Miralax. + Multiple liquid and solid bowel movements, states she "clogged the toilet." No bleeding. Last colonoscopy was < 5 years ago. She states she has an appointment with Dr. Morgan, but does not want to have a colonoscopy at this time. She wants to wait and have done as outpatient. She is tolerating diet and would like this advanced. She plans on stopping opiate use, as she reports that was the reason she became constipated in the first place. Miralax daily, Flagyl, Levqauin - Abdominal pain secondary to above. IMPROVED. - AMS, metabolic encephalopathy vs TIA/CVA. IMPROVED. Now alert and oriented. - Sepsis, Leukocytosis. CXR (04/24/17)----> 1. Mediastinal prominence which is new compared to previous of 11/01/13. CT imaging of the thorax to excluded adenopathy versus aneurysmal dilation of the ascending aorta is warranted. On flagyl, levaquin. Improving. WBC 13.4. PLAN - Soft diet as tolerated - Miralax 17 gram po daily - Monitor Stool output - Minimize/avoid opiates - Pt does not want colonoscopy at this time. She has an appointment with Dr. Morgan and wants to have done as outpatient - Pt seen by Dr. Mallory and myself and thisnote is written on his behalf (Pamela Correia) Plan Patient was seen and examined, agree with above note and plan (Nanci Mallory MD) Pamela Correia Apr 27, 2017 15:31 Nanci Mallory MD Apr 27, 2017 17:40
[2017-04-27] MEDS: WARFARIN SOD 5 MG TAB PO SCH (16:05)
[2017-04-27] MEDS: LEVOFLOXACIN 750 MG PREMIX INJ 150 ML IV SCH (20:55)
[2017-04-28] VITALS (8 sets, daily range): BP systolic 132–169; BP diastolic 63–91; PULSE 74–97; RESP 18–24; TEMP 97.5–99.8; O2SAT 95–100
[2017-04-28 00:14] LABS: INTERNATIONAL NORMALIZED RATIO 3.7 RATIO; PROTHROMBIN TIME - PATIENT 42.7 SEC (9.8-11.6)
[2017-04-28] MEDS: metroNIDAZOLE 500 MG INJ 100 ML IV SCH (04:06)
[2017-04-28] MEDS: GEMFIBROZIL 600 MG TAB PO SCH ×2 (05:36→16:14)
[2017-04-28] MEDS: SODIUM CHLORIDE 0.9% FLUSH 10 ML FLUSH IV FLUSH SCH ×2 (07:59→20:29)
[2017-04-28] MEDS: RELISTOR PO SCH (07:59)
[2017-04-28] MEDS: SOTALOL HCL 80 MG TAB PO SCH ×2 (08:00→20:28)
[2017-04-28] MEDS: PANTOPRAZOLE SOD 40 MG DELAYED RELEASE TAB PO SCH (08:00)
[2017-04-28] MEDS: DOCUSATE SODIUM 50 MG/SENNA 8.6 MG TAB PO SCH ×2 (08:00→20:29)
[2017-04-28] MEDS: buPROPion HCL 100 MG SUSTAINED RELEASE TAB PO SCH (08:00)
[2017-04-28] MEDS: POLYETHYLENE GLYCOL 17 GM PKG PO SCH (08:00)
[2017-04-28] MEDS: DIGOXIN 0.125 MG TAB PO SCH (08:00)
[2017-04-28] MEDS: PREGABALIN 75 MG CAP PO SCH ×2 (08:00→20:28)
[2017-04-28] MEDS: PARoxetine HCL 20 MG TAB PO SCH (08:00)
[2017-04-28] MEDS: SODIUM CHLOR 0.9% 1000 ML INJ 1,000 ML IV SCH (08:04)
[2017-04-28 08:11] LABS: AUTOMATED NEUTROPHIL # 5.2 TH/MM3 (1.8-7.7); BASOPHIL % 0.4 % (0.0-2.0); EOSINOPHIL # 0.1 TH/MM3 (0-0.4); EOSINOPHIL % 1.3 % (0.0-4.0); HEMATOCRIT 33.1 % (35.0-46.0); HEMO FLAGS DIFF FINAL; LYMPH % 27.9 % (9.0-44.0); LYMPHOCYTE # 2.4 TH/MM3 (1.0-4.8); MEAN CELL VOLUME 75.2 FL (80.0-100.0); MEAN CORPUSCULAR HEMOGLOBIN 25.1 PG (27.0-34.0); MEAN CORPUSCULAR HGB CONC 33.4 % (32.0-36.0); MONO % 9.3 % (0.0-8.0); NEUT % 61.1 % (16.0-70.0); PLATELET COUNT 286 TH/MM3 (150-450); RED BLOOD COUNT 4.41 MIL/MM3 (4.00-5.30); WHITE BLOOD COUNT 8.5 TH/MM3 (4.0-11.0)
[2017-04-28 08:23] LABS: BICARBONATE 25.6 MEQ/L (21.0-32.0); MAGNESIUM 1.9 MG/DL (1.5-2.5); POTASSIUM 3.6 MEQ/L (3.5-5.1)
[2017-04-28] MEDS ORDERED: SODIUM PHOSPHATE INJ 15 MMOL in SODIUM CHLORIDE 0.9% INJ 150 ML IV ONE (11:00)
[2017-04-28] MEDS: LEVOFLOXACIN 750 MG TAB PO SCH (11:53)
--- NOTE | 2017-04-28 12:28 | HHI.GIFU ---
Subjective Remarks Patient resting in bed, in no apparent distress. States she is having lower abdominal pain. No nausea or vomiting. Alternating liquid/solid stools. ( Marquita Ramirez) Objective Vitals I&O Vital Signs Date Time Temp Pulse Resp B/P Pulse Ox O2 Delivery O2 Flow Rate FiO2 04/28/17 12:01 98.2 78 19 169/77 100 04/28/17 09:14 74 04/28/17 08:12 99.8 89 19 150/75 97 04/28/17 04:00 98.9 75 18 159/74 95 04/28/17 00:00 98.2 76 24 132/63 98 04/27/17 20:00 88 04/27/17 20:00 97.3 82 24 145/70 100 04/27/17 16:22 98.1 81 19 137/69 100 I/O 04/27/17 04/27/17 04/27/17 04/28/17 04/28/17 04/28/17 07:00 15:00 23:00 07:00 15:00 23:00 Intake Total 1317 ml 786 ml Balance 1317 ml 786 ml IV Total 1317 ml 786 ml # Voids 1 1 1 1 # Bowel Movements 1 1 1 Laboratory Laboratory Tests Test 04/27/17 04/28/17 23:20 07:30 Prothrombin Time 42.7 Prothromb Time International 3.7 Ratio White Blood Count 8.5 Red Blood Count 4.41 Hemoglobin 11.1 Hematocrit 33.1 Mean Corpuscular Volume 75.2 Mean Corpuscular Hemoglobin 25.1 Mean Corpuscular Hemoglobin 33.4 Concent Red Cell Distribution Width 17.0 Platelet Count 286 Mean Platelet Volume 9.4 Neutrophils (%) (Auto) 61.1 Lymphocytes (%) (Auto) 27.9 Monocytes (%) (Auto) 9.3 Eosinophils (%) (Auto) 1.3 Basophils (%) (Auto) 0.4 Neutrophils # (Auto) 5.2 Lymphocytes # (Auto) 2.4 Monocytes # (Auto) 0.8 Eosinophils # (Auto) 0.1 Basophils # (Auto) 0.0 CBC Comment DIFF FINAL Differential Comment Sodium Level 143 Potassium Level 3.6 Chloride Level 110 Carbon Dioxide Level 25.6 Anion Gap 7 Blood Urea Nitrogen 8 Creatinine 0.53 Estimat Glomerular Filtration 119 Rate Random Glucose 103 Calcium Level 9.6 Phosphorus Level 1.9 Magnesium Level 1.9 Albumin 2.8 Date/Time Procedure Status Source Growth 04/24/17 18:33 Urine Culture - Final Complete Urine Catheterized Urine Escherichia Coli Physical Exam HEENT: Normocephalic; atraumatic; no jaundice CHEST: CTA CARDIAC: RRR ABDOMEN: Soft, nondistended, mild tenderness at lower abdomen; no hepatosplenomegaly; bowel sounds x 4 quadrants EXTREMITIES: No clubbing, cyanosis, or edema. SKIN: Normal; no rash; no jaundice. STREET CONTRACTOR: Alert and oriented (Marquita Ramirez) Assessment and Plan Plan ASSESSMENT - Stercoral colitis/proctitis with overflow diarrhea. She has chronic constipation secondary to opioid use and has been taking Relistor at home. She came to the ER for abdominal pain and diarrhea. Abdomen/Pelvis CT (04/24/17)----> Apparent stercoral colitis/proctitis; large amount of stool in the rectum with associated inflammatory changes. No abscess or perforation demonstrated. Abdomen X-Ray ( 04/25/17)----> 1. Constipation. Bladder distended with contrast. Multiple surgical clips right upper quadrant. S/P SSE, S/P Miralax. + Multiple liquid and solid bowel movements, states she "clogged the toilet." No bleeding. Last colonoscopy was < 5 years ago. She states she has an appointment with Dr. Morgan, but does not want to have a colonoscopy at this time. She wants to wait and have done as outpatient. She is tolerating diet and would like this advanced. She plans on stopping opiate use, as she reports that was the reason she became constipated in the first place. Miralax daily, Flagyl, Levqauin - Abdominal pain secondary to above. IMPROVED. - AMS, metabolic encephalopathy vs TIA/CVA. IMPROVED. Now alert and oriented. - Sepsis, Leukocytosis. CXR (04/24/17)----> 1. Mediastinal prominence which is new compared to previous of 11/01/13. CT imaging of the thorax to excluded adenopathy versus aneurysmal dilation of the ascending aorta is warranted. On flagyl, levaquin. Improved. WBC 8.5 PLAN - Soft diet as tolerated - Miralax 17 gram po daily - Monitor Stool output - Minimize/avoid opiates - Pt does not want colonoscopy at this time. She has an appointment with Dr. Morgan and wants to have done as outpatient Patient seen and examined by myself and Dr. Mallory and this note is written on his behalf (Marquita Ramirez) Physician Comments Patient was seen and examined agree with above note, continue supportive care and agree with the plan (Nanci Mallory MD) Marquita Ramirez Apr 28, 2017 12:28 Nanci Mallory MD Apr 28, 2017 12:54
[2017-04-28] MEDS: POTASSIUM PHOSPHATE/SODIUM PHOSPHATE 250 MG TAB PO SCH ×2 (12:44→21:32)
[2017-04-28] MEDS: metroNIDAZOLE 500 MG TAB PO SCH ×2 (12:44→21:32)
[2017-04-28 15:57] LABS: INTERNATIONAL NORMALIZED RATIO 2.9 RATIO; PROTHROMBIN TIME - PATIENT 33.3 SEC (9.8-11.6)
--- NOTE | 2017-04-28 23:23 | HHI.PR ---
Subjective Remarks Patient seen around 10:30 AM. Says she is feeling better. Abdominal pain resolved. No nausea or vomiting. Has not been out of bed. Awaiting insurance approval for SNF. Objective Vital Signs Date Time Temp Pulse Resp B/P Pulse Ox O2 Delivery O2 Flow Rate FiO2 04/28/17 20:00 97.5 83 18 168/91 95 04/28/17 15:56 99.1 78 18 166/77 99 04/28/17 12:01 98.2 78 19 169/77 100 04/28/17 09:14 74 04/28/17 08:12 99.8 89 19 150/75 97 04/28/17 04:00 98.9 75 18 159/74 95 04/28/17 00:00 98.2 76 24 132/63 98 I/O 04/27/17 04/27/17 04/27/17 04/28/17 04/28/17 04/28/17 07:00 15:00 23:00 07:00 15:00 23:00 Intake Total 1317 ml 786 ml 1160 ml Balance 1317 ml 786 ml 1160 ml Intake Oral 360 ml IV Total 1317 ml 786 ml 800 ml # Voids 1 1 1 1 3 # Bowel Movements 1 1 1 Result Diagram: 04/28/17 0730 04/28/17 0730 Objective Remarks GENERAL: patient sitting up in bed. Appears comfortable. awake, alert and oriented today. again,no change on exam. SKIN: Warm and dry. HEAD: Normocephalic. EYES: No scleral icterus. No injection or drainage. NECK: Supple, trachea midline. No JVD. CARDIOVASCULAR: Regular rate and rhythm without murmurs, gallops, or rubs. RESPIRATORY: Breath sounds equal bilaterally. No accessory muscle use. GASTROINTESTINAL: Abdomen soft, non-tender, nondistended. MUSCULOSKELETAL: No cyanosis, or edema. BACK: Nontender without obvious deformity. No CVA tenderness. A/P Assessment and Plan ===04/28/17 //Hypophosphatemia. Improving. 1.9. Replace orally. //Pneumonia. Breathing Comfortably. Continue antibiotics to complete treatment course. //Sepsis resolved. Continue antibiotics to complete treatment course. //Atrial fibrillation. INR 2.9. Therapeutic. Continue warfarin. This is a 56 year old female patient with a past medical history which includes antiphospholipid syndrome, atrial fibrillation, chronic bilateral knee pain, peripheral neuropathy, anxiety/depression, hypertension, hyperlipidemia and coronary artery disease. Patient appears weak and is a poor historian at this time information gathered from patient as well as prior charting. Patient reports that her called the ambulance because she was not taking her medication. It appears that patient has had generalized weakness and poor by mouth intake. Patient labs reveal WBC 22, Neutrophil percent 85, appear hemoconcentrated, BUN 41, creatine 0.93 estimated GFR 62, potassium 3.3, magnesium 2.5, alk phosphatase 123 troponin 0.32, 0.30 TSH 0.256 //Sepsis by criteria (HR 101, WBC 22.0, with suspected source pna) //generalized weakness //Leukocytosis //pna //possible UTI CXR reviewed and reveals 1. Mediastinal prominence which is new compared to previous of 11/01/13. CT imaging of the thorax to excluded adenopathy versus aneurysmal dilation of the ascending aorta is warranted CT chest with contrast reviewed and reveals 1. Examination quality degraded secondary to patient motion. No PE is identified. 2. Subtle airspace opacity in the right middle lobe and right lower lobe. The appearance favors an infectious or inflammatory process. Levaquin 750mg IV AMS likely secondary to metabolic encephalopathy vs TIA/CVA CT head reviewed and reveals 1. No acute intracranial abnormality. 2. Sphenoid sinusitis, chronic MRI negative. -And tingling antibiotics for pneumonia and colitis. //severe dehydration -appears hemoconcentrated 1L NS bolus given in ER IV fluids NS at 100ml/H recheck CBC, BMP now //Elevated troponin 0.32, 0.030, possible demand ischemia secondary to sepsis R/ O ACS continue serial enzymes Initial EKG reveals SR first degree AV block HR 90bpm, ST depression leads II , AVF, V3, V4 and V5 with LVH continue serial EKG continuous telemetry monitoring - Follow with cardiology as outpatient. //Atrial fibrillation- chronic currently in SR Continue home medications warfarin, Sotalol, Digoxin //abdominal pain with diarrhea //Colitis stool for C diff negative CT abdomen/Pelvis reviewed and reveals 1. Examination quality degraded secondary to patient motion. No PE is identified. 2. Subtle airspace opacity in the right middle lobe and right lower lobe. The appearance favors an infectious or inflammatory process. Patient previously started on Levaquin for pna will add Flagyl IV //DVT prophylaxis patient in Coumadin Discharge Planning dc to SNF.awaiting insurance approval. Jose Stephens MD Apr 28, 2017 23:23
[2017-04-29] VITALS: BP 142/68; PULSE 85; RESP 18; TEMP 98.7; O2SAT 96
[2017-04-29 04:00] VITALS: BP 168/77; PULSE 79; RESP 18; TEMP 97; O2SAT 95
[2017-04-29] MEDS: POTASSIUM PHOSPHATE/SODIUM PHOSPHATE 250 MG TAB PO SCH (06:22)
[2017-04-29] MEDS: GEMFIBROZIL 600 MG TAB PO SCH ×2 (06:22→15:33)
[2017-04-29] MEDS: metroNIDAZOLE 500 MG TAB PO SCH ×2 (06:22→14:05)
[2017-04-29 08:00] VITALS: BP 155/95; PULSE 77; RESP 16; TEMP 98.9; O2SAT 98
[2017-04-29] MEDS: PARoxetine HCL 20 MG TAB PO SCH (08:55)
[2017-04-29] MEDS: SODIUM CHLORIDE 0.9% FLUSH 10 ML FLUSH IV FLUSH SCH (08:55)
[2017-04-29] MEDS: PANTOPRAZOLE SOD 40 MG DELAYED RELEASE TAB PO SCH (08:58)
[2017-04-29] MEDS: buPROPion HCL 100 MG SUSTAINED RELEASE TAB PO SCH (08:58)
[2017-04-29] MEDS: LEVOFLOXACIN 750 MG TAB PO SCH (08:59)
[2017-04-29] MEDS: SOTALOL HCL 80 MG TAB PO SCH (08:59)
[2017-04-29] MEDS: DOCUSATE SODIUM 50 MG/SENNA 8.6 MG TAB PO SCH (08:59)
[2017-04-29] MEDS: RELISTOR PO SCH (09:00)
[2017-04-29] MEDS: DIGOXIN 0.125 MG TAB PO SCH (09:00)
[2017-04-29] MEDS: POLYETHYLENE GLYCOL 17 GM PKG PO SCH (09:01)
[2017-04-29] MEDS: PREGABALIN 75 MG CAP PO SCH (09:01)
[2017-04-29 10:50] LABS: INTERNATIONAL NORMALIZED RATIO 1.8 RATIO; PROTHROMBIN TIME - PATIENT 20.3 SEC (9.8-11.6)
[2017-04-29 12:02] VITALS: BP 99/52; PULSE 71; RESP 16; TEMP 99.1; O2SAT 98
[2017-04-29 12:59] LABS: BICARBONATE 21.9 MEQ/L (21.0-32.0); MAGNESIUM 1.8 MG/DL (1.5-2.5)
[2017-04-29 13:03] LABS: POTASSIUM 3.7 MEQ/L (3.5-5.1)
[2017-04-29] MEDS ORDERED: POLY17S PO (13:12)
[2017-04-29] MEDS ORDERED: METR-1 PO (13:12)
[2017-04-29] MEDS ORDERED: LEVA750T9 PO (13:12)
[2017-04-29] MEDS ORDERED: SENN8.6T15 PO (13:12)
[2017-04-29] MEDS ORDERED: COUM4TAB PO (13:12)
[2017-04-29] MEDS ORDERED: KPHOS250 PO (13:14)
[2017-04-29] MEDS ORDERED: SODIUM PHOSPHATE INJ 30 MMOL in SODIUM CHLOR 0.9% 250 ML INJ 250 ML IV ONE (14:00)
--- NOTE | 2017-04-29 14:23 | HHI.GIFU ---
Subjective Remarks pt resting in bed, visiting with son. She says she feels much better, eating fine, having BMs. Objective Vitals I&O Vital Signs Date Time Temp Pulse Resp B/P Pulse Ox O2 Delivery O2 Flow Rate FiO2 04/29/17 12:02 99.1 71 16 99/52 98 04/29/17 08:00 98.9 77 16 155/95 98 04/29/17 04:00 97.0 79 18 168/77 95 04/29/17 00:00 98.7 85 18 142/68 96 04/28/17 23:44 97 04/28/17 20:00 97.5 83 18 168/91 95 04/28/17 15:56 99.1 78 18 166/77 99 I/O 04/28/17 04/28/17 04/28/17 04/29/17 04/29/17 04/29/17 06:59 14:59 22:59 06:59 14:59 22:59 Intake Total 786 ml 1160 ml Balance 786 ml 1160 ml Intake Oral 360 ml IV Total 786 ml 800 ml # Voids 1 3 2 Laboratory Laboratory Tests Test 04/28/17 04/29/17 04/29/17 15:31 10:15 12:18 Prothrombin Time 33.3 20.3 Prothromb Time International 2.9 1.8 Ratio Sodium Level 139 Potassium Level 3.7 Chloride Level 107 Carbon Dioxide Level 21.9 Anion Gap 10 Blood Urea Nitrogen 11 Creatinine 0.71 Estimat Glomerular Filtration 85 Rate Random Glucose 184 Calcium Level 9.7 Phosphorus Level 1.2 Magnesium Level 1.8 Albumin 3.0 Date/Time Procedure Status Source Growth 04/24/17 18:33 Urine Culture - Final Complete Urine Catheterized Urine Escherichia Coli Imaging Last Impressions Head Magnetic Resonance Angiography 04/25/17 0000 Signed Impressions: Service Date/Time: April 14:41 - CONCLUSION: 1. Negative examination. Gonzales Charles MD Carotid Artery Ultrasound 04/25/17 0000 Signed Impressions: Service Date/Time: April 09:25 - CONCLUSION: 1. Mild calcified carotid plaque bilaterally without significant flow-limiting stenosis. 2. Antegrade vertebral artery flow. Shahriar Isaac MD Brain MRI 04/25/17 0000 Signed Impressions: Service Date/Time: April 14:41 - CONCLUSION: 1. No acute intracranial abnormality identified. 2. Mucoperiosteal sinus disease involving the sphenoid sinus. Gonzales Charles MD Abdomen X-Ray 04/25/17 0000 Signed Impressions: Service Date/Time: April 13:55 - CONCLUSION: 1. Constipation. Bladder distended with contrast. Multiple surgical clips right upper quadrant. Marty Lundberg MD Head CT 04/24/17 1539 Signed Impressions: Service Date/Time: Monday, April 24, 2017 16:29 - CONCLUSION: 1. No acute intracranial abnormality. 2. Sphenoid sinusitis, chronic. Shahriar Isaac MD Chest X-Ray 04/24/17 1539 Signed Impressions: Service Date/Time: Monday, April 24, 2017 16:00 - CONCLUSION: 1. Mediastinal prominence which is new compared to previous of 11/01/13. CT imaging of the thorax to excluded adenopathy versus aneurysmal dilation of the ascending aorta is warranted. Gonzales Charles MD Lower Extremity Ultrasound 04/24/17 0000 Signed Impressions: Service Date/Time: Monday, April 24, 2017 20:59 - CONCLUSION: No DVT is identified within the lower extremities. Krishan Tineo MD CT Angiography 04/24/17 0000 Signed Impressions: Service Date/Time: Monday, April 24, 2017 18:05 - CONCLUSION: 1. Examination quality degraded secondary to patient motion. No PE is identified. 2. Subtle airspace opacity in the right middle lobe and right lower lobe. The appearance favors an infectious or inflammatory process. Krishan Tineo MD Abdomen/Pelvis CT 04/24/17 0000 Signed Impressions: Service Date/Time: April 01:56 - CONCLUSION: Apparent stercoral colitis/proctitis; large amount of stool in the rectum with associated inflammatory changes. No abscess or perforation demonstrated. Krishan Chino MD Physical Exam HEENT: Normocephalic; atraumatic; no jaundice CHEST: CTA CARDIAC: RRR ABDOMEN: Soft, nondistended, mild tenderness at lower abdomen; no hepatosplenomegaly; bowel sounds x 4 quadrants EXTREMITIES: No clubbing, cyanosis, or edema. SKIN: Normal; no rash; no jaundice. CHARTING CLERK: Alert and oriented Assessment and Plan Plan ASSESSMENT - Stercoral colitis/proctitis with overflow diarrhea. Improving. She has chronic constipation secondary to opioid use and has been taking Relistor at home. She came to the ER for abdominal pain and diarrhea. Abdomen/Pelvis CT (04/24/17)----> Apparent stercoral colitis/proctitis; large amount of stool in the rectum with associated inflammatory changes. No abscess or perforation demonstrated. Abdomen X-Ray ( 04/25/17)----> 1. Constipation. Bladder distended with contrast. Multiple surgical clips right upper quadrant. S/P SSE, S/P Miralax. + Multiple liquid and solid bowel movements, states she "clogged the toilet." No bleeding. Last colonoscopy was < 5 years ago. She states she has an appointment with Dr. Morgan, but does not want to have a colonoscopy at this time. She wants to wait and have done as outpatient. She is tolerating diet and would like this advanced. She plans on stopping opiate use, as she reports that was the reason she became constipated in the first place. Miralax daily, Flagyl, Levqauin - Abdominal pain secondary to above. IMPROVED. - AMS, metabolic encephalopathy vs TIA/CVA. IMPROVED. Now alert and oriented. - Sepsis, Leukocytosis. CXR (04/24/17)----> 1. Mediastinal prominence which is new compared to previous of 11/01/13. CT imaging of the thorax to excluded adenopathy versus aneurysmal dilation of the ascending aorta is warranted. On flagyl, levaquin. Improved. WBC 8.5 PLAN - Soft diet as tolerated - Miralax 17 gram po daily - Monitor Stool output - Minimize/avoid opiates -f/u with GI as outpt- She has an appointment with Dr. Morgan and wants to colonoscopy have done as outpatient Patient seen and examined by myself and Dr. Deal and this note is written on his behalf Giovana Sofia Apr 29, 2017 14:23
[2017-04-29] MEDS ORDERED: WARFARIN SOD 4 MG TAB PO SCH (16:00)
[2017-04-29 16:23] VITALS: BP 150/77; PULSE 76; RESP 16; TEMP 98.1; O2SAT 100
[2017-04-29 17:00] VITALS: PULSE 66
== END 2017-04-29 18:20 | DRG 871 ==
LOC: NEPC 14:46 → NEDA 18:42 → N05B 21:46 → N05A 04-26 16:41
PROVIDERS: ADMIT Internal Medicine; ATTEND Internal Medicine
DX: A41.9 Sepsis, unspecified organism (principal); J69.0 Pneumonitis due to inhalation of food and vomit; G93.41 Metabolic encephalopathy; N17.9 Acute kidney failure, unspecified; D68.61 Antiphospholipid syndrome; I24.8 Other forms of acute ischemic heart disease; F11.20 Opioid dependence, uncomplicated; E83.39 Other disorders of phosphorus metabolism; G62.9 Polyneuropathy, unspecified; I48.2 Chronic atrial fibrillation; E86.0 Dehydration; F32.9 Major depressive disorder, single episode, unspecified; I10 Essential (primary) hypertension; G89.29 Other chronic pain; K52.9 Noninfective gastroenteritis and colitis, unspecified; I25.10 Atherosclerotic heart disease of native coronary artery without angina pectoris; E78.5 Hyperlipidemia, unspecified; M19.90 Unspecified osteoarthritis, unspecified site; K21.9 Gastro-esophageal reflux disease without esophagitis; D64.9 Anemia, unspecified; K59.03 Drug induced constipation; T40.2X5A Adverse effect of other opioids, initial encounter; I44.0 Atrioventricular block, first degree; F41.9 Anxiety disorder, unspecified; M54.9 Dorsalgia, unspecified; R41.82 Altered mental status, unspecified; Z79.01 Long term (current) use of anticoagulants; Z79.84 Long term (current) use of oral hypoglycemic drugs; Z87.891 Personal history of nicotine dependence
CPT/HCPCS: 70450; 70544; 70551; 71010; 71275; 74000; 74176; 80048; 80053; 80069; 80162; 80307; 81001; 82533; 82550; 82948; 83605; 83735; 84165; 84439; 84443; 84480; 84484; 85025; 85060; 85610; 85730; 87077; 87086; 87186; 87493; 93005; 93306; 93880; 93970; J1885; J1956; J3480; J7030; J7050; Q9963; Q9967